=== PATIENT | female | born 1940 | race Caucasian/White ===

== ENCOUNTER → 2017-07-09 15:09 | Outpatient (CLI) | payer MEDICARE, SELFPAY ==
[2017-07-09 17:52] LABS: Hematocrit 39.6 % (37-47); Hemoglobin 13.1 g/dl (12.0-15.0); Mean Corp Hgb Conc 33.1 g/gl (32-36); Mean Corpuscular Hgb 28.5 pg (27.0-32.0); Mean Corpuscular Volume 86.1 fL (81-99); Mean Platelet Vol. 10.5 fl (6.2-12.0); Platelet Count 368 K/mm3 (150-450); RBC Distribution Width CV 13.5 % (11.6-14.6); RBC Distribution Width SD 42.2 fl (35.1-43.9); White Blood Count 12.4 K/mm3 (4.4-11.0)
[2017-07-09 17:53] LABS: Scan Indicated on CBC? Y/N NO
[2017-07-09 18:12] LABS: Prothrombin Time (Protime)PT. 12.7 SECONDS (11.7-14.9)
[2017-07-09 18:13] LABS: Partial Thromboplast Time 28.5 Seconds (24.1-36.2)
[2017-07-09 18:19] LABS: AST(SGOT) 21 U/L (15-37); Alanine Aminotransfer ALT/SGPT 39 U/L (12-78); Albumin, Serum 4.4 g/dL (3.4-5.0); Alkaline Phosphatase 93 U/L (45-117); Globulin 3.5 g/dL (2.2-4.2); Protein, Total 7.9 g/dL (6.4-8.2)
== END ==
PROVIDERS: Family Provider Internal Medicine; PCP Internal Medicine; Visit Provider Internal Medicine Gastroenterology
DX: K76.0 Fatty (change of) liver, not elsewhere classified (principal)
CPT/HCPCS: 36415; 80076; 85027; 85610; 85730; J7030

== ENCOUNTER → 2017-07-14 07:50 | Outpatient (CLI) | payer MEDICARE, SELFPAY ==
--- NOTE | 2017-07-14 07:53 | US_ITS ---
STUDY: ABDOMINAL ULTRASOUND - RIGHT UPPER QUADRANT REASON FOR VISIT: Female, 76 years old. Cirrhosis and fatty infiltration of the liver. Elevated alpha protein. TECHNIQUE: Ultrasound evaluation of the right upper quadrant was performed with real-time and static tyler-scale imaging. TECHNICAL QUALITY: Adequate. COMPARISON: Comparison is made with prior examination dated July 03, 2016. FINDINGS: Liver: The liver measures 15.8 cm. There is increased echogenicity consistent with fatty infiltration. The bile ducts are within normal limits. There is hepatic color flow. The direction of portal flow is hepatopetal. There is no demonstrated mass lesion. Gallbladder: The patient is status post cholecystectomy. Common Bile Duct (C.B.D.): The common bile duct measures 4.2 mm. Pancreas: Normal size of the head, body and tail of the pancreas. There is increased echogenicity of the pancreas. There is no demonstrated pancreatic mass or cyst. Right Kidney: Normal size of the right kidney. The right kidney measures 10.5 cm x 4.5 cm x 5.8 cm. Normal renal cortex. The right cortex measures 2.1 cm. There is no demonstrated renal mass or cyst. There is no right hydronephrosis. US/Liver IMPRESSION: Stable fatty infiltration of the liver. Status post cholecystectomy. Electronically Signed: Ok Wolfe MD at 12:59 EST Tel [phone], Service support ,
== END ==
PROVIDERS: Family Provider Internal Medicine; PCP Internal Medicine; Visit Provider Internal Medicine Gastroenterology
DX: K74.60 Unspecified cirrhosis of liver (principal)
CPT/HCPCS: 76705

== ENCOUNTER → 2017-12-07 15:27 | Outpatient (CLI) | payer MEDICARE, SELFPAY ==
--- NOTE | 2017-12-07 15:30 | BI_ITS ---
MAMMOGRAPHY - UNILATERAL SCREENING: LEFT BREAST REASON FOR EXAM: Female, 77 years old. Routine annual screening examination (unilateral). PERTINENT HISTORY: Personal history of breast cancer. Prior right mastectomy with radiation therapy. TECHNIQUE: Digital unilateral breast meera (3D mammographic acquisition) in the CC and MLO projections. 2-D mediolateral oblique (MLO) and craniocaudad (CC) views of both breasts were obtained. CAD: Full Field Digital Mammography with Computer Added Detection was performed. COMPARISON: Comparison is made with prior examination dated October 05, 2016 and October 01, 2014. FINDINGS: Breast Composition: There are scattered areas of fibroglandular density. There are no dominant masses or suspicious calcifications. No other significant abnormalities are identified. There has been no significant change since the prior study. BI/UNILAT LT SCRN W/CAD IMPRESSION: Stable unilateral screening mammogram. Yearly follow-up mammogram recommended. (A) ASSESSMENT CATEGORY: BIRADS Category 1: Negative. A letter regarding these results will be sent to the patient by the facility within 30 days. Approximately 10% of breast cancers are not detected by mammography. A normal mammogram should not delay biopsy of a clinically suspicious abnormality. [id number] Electronically Signed: Ok Wolfe MD at 8:43 EDT Tel [phone], Service support ,
--- NOTE | 2017-12-07 15:33 | BD_ITS ---
STUDY: DUAL ENERGY X-RAY ABSORPTIOMETRY / DXA REASON FOR EXAM: Female, 77 years old. The patient is postmenopausal. Loss of height. TECHNIQUE: Bone Mineral Density (BMD) measurements of lumbar spine and bilateral hips were obtained. COMPARISON: Comparison is made with prior study dated July 18, 2014. FINDINGS: Lumbar Spine (L1-L4): g/cm2 (1.160) / T-score (-0.2) / Z-score (1.6) Findings are suggestive of normal bone density with a low fracture risk. Left Femur Total: g/cm2 (1.018) / T-score (0.1) / Z-score (1.9) Left Femoral Neck: g/cm2 (0.88) / T-score (-1.1) / Z-score (0.9) Right Femur Total: g/cm2 (0.962) / T-score (-0.4) / Z-score (1.4) Right Femoral Neck: g/cm2 (0.875) / T-score (-1.2) / Z-score (0.8) The T-Scores on the most recent prior examination were: Lumbar Spine (L1-L4): There has been improvement of bone density since the previous examination. Left Femur Total: which represents an improvement of 0.8%. Right Femur Total: which represents an improvement of 1.8%. BD/Dexa Bone Density Study IMPRESSION: The patient is considered osteopenic as outlined below according to World Justin Organization (WHO) criteria with a moderate fracture risk. There has been improvement of bone density since the previous examination. Reference Information: The T-score is the number of standard deviations above or below the standard which is normal for young adults at their peak bone mineral density. The World Health Organization (WHO) interprets the T-scores as follows: Above -1 Normal bone density Between -1 and -2.5 Osteopenia Equal to / or below -2.5 Osteoporosis As a practical clinical guideline, osteopenia may be graded as follows: Mild -1 through -1.5 Moderate -1.6 through -2.0 Severe -2.1 through -2.4 The Z-score is the number of standard deviations above or below age-matched controls. A Z-score of less than -1.5 would be considered abnormal. References: 1. NIH Osteoporosis and Related Bone Diseases http://www.osteo.org 2. International Society for Clinical Densitometry http://www.iscd.org 3. National Osteoporosis Foundation http://www.nof.org Electronically Signed: Ok Wolfe MD at 11:27 EDT Tel [phone], Service support ,
== END ==
PROVIDERS: Family Provider Internal Medicine; PCP Internal Medicine; Visit Provider Obstetrics & Gynecology
DX: Z78.0 Asymptomatic menopausal state (principal); Z91.89 Other specified personal risk factors, not elsewhere classified; Z12.31 Encounter for screening mammogram for malignant neoplasm of breast
CPT/HCPCS: 77061; 77067; 77080; G0279

== ENCOUNTER → 2018-08-17 14:14 | Outpatient (CLI) | payer MEDICARE, SELFPAY ==
[2017-10-18 10:49] VITALS: BMI 25.9
[2018-08-19 12:42] LABS: AFP, Tumor Marker 45.8 ng/mL (0.0-8.3)
== END ==
PROVIDERS: Family Provider Internal Medicine; PCP Internal Medicine; Referring Provider Internal Medicine Gastroenterology; Visit Provider Internal Medicine Gastroenterology
DX: K76.0 Fatty (change of) liver, not elsewhere classified (principal); R77.2 Abnormality of alphafetoprotein
CPT/HCPCS: 36415; 82105

== ENCOUNTER → 2018-12-08 | Outpatient (CLI) | payer MEDICARE, SELFPAY ==
[2018-12-05 14:09] VITALS: BMI 25.9
--- NOTE | 2018-12-08 11:02 | BI_ITS ---
MAMMOGRAPHY - UNILATERAL SCREENING: LEFT BREAST WITH TOMOSYNTHESIS REASON FOR EXAM: Female, 78 years old. Routine annual screening examination (unilateral). PERTINENT HISTORY: History of right mastectomy at age 67 status post chemotherapy. TECHNIQUE: TECHNIQUE: Digital examination. Mediolateral oblique (MLO) and craniocaudad (CC) views of both breasts were obtained. 3-D, symphysis images were also obtained. CAD: CAD was performed on this study. COMPARISON: December 07, 2017, October 05, 2016 FINDINGS: Breast Composition: The breasts are almost entirely fatty. There are stable benign calcifications. There are no dominant masses or suspicious calcifications. No other significant abnormalities are identified. BI/SCREEN MAMM (CAD) W/JEANIE UNI L IMPRESSION: Stable bilateral screening mammogram. ASSESSMENT CATEGORY: BIRADS Category 2: Benign. A letter regarding these results will be sent to the patient by the facility within 30 days. FOLLOW UP RECOMMENDATION: Yearly follow up mammogram recommended. (A) Approximately 10% of breast cancers are not detected by mammography. A normal mammogram should not delay biopsy of a clinically suspicious abnormality. [id number] Electronically Signed: Iraj Navarro MD at 16:56 EDT , Service support ,
== END | disposition home or self-care (01) ==
LOC: OPBI 10:56
PROVIDERS: Family Provider Internal Medicine; PCP Internal Medicine; Referring Provider Obstetrics & Gynecology; Visit Provider Obstetrics & Gynecology
DX: Z12.31 Encounter for screening mammogram for malignant neoplasm of breast (principal)
CPT/HCPCS: 77061; 77067; G0279

== ENCOUNTER → 2019-04-03 | Outpatient (CLI) | payer MEDICARE, SELFPAY ==
[2018-12-05 14:09] VITALS: BMI 25.9
--- NOTE | 2019-04-03 16:51 | RAD_ITS ---
STUDY: X-RAY CHEST REASON FOR EXAM: Female, 78 years old. Cough x4-5 days, history of right mastectomy TECHNIQUE: PA and lateral views of the chest. COMPARISON: None. FINDINGS: The lungs are clear and expanded. There is no demonstrated pleural abnormality. Normal size heart. Normal mediastinum and camron. Normal visualized pulmonary arteries. There are calcified plaques of the aortic arch. There is mild diffuse endplate spondylosis of the thoracic spine. Normal visualized ribs, clavicles, and shoulders. Status post right mastectomy changes are noted. RAD/Chest PA and Lateral IMPRESSION: 1. Status post right mastectomy. 2. Calcified plaques of the aortic arch. 3. Mild diffuse endplate spondylosis of the thoracic spine. 4. No acute cardiopulmonary disease process is seen. Electronically Signed: Antonio Hassan MD at 23:57 EDT , Service support ,
== END | disposition home or self-care (01) ==
LOC: MTLAB 16:38
PROVIDERS: Family Provider Internal Medicine; PCP Internal Medicine; Referring Provider Internal Medicine; Visit Provider Internal Medicine
DX: R05 Cough (principal); R77.2 Abnormality of alphafetoprotein
CPT/HCPCS: 36415; 71046; 82105

== ENCOUNTER → 2019-12-12 07:10 | Outpatient (CLI) | payer MEDICARE, SELFPAY ==
[2018-12-05 14:09] VITALS: BMI 25.9
--- NOTE | 2019-12-12 07:10 | BI_ITS ---
MAMMOGRAPHY - UNILATERAL SCREENING: LEFT BREAST REASON FOR EXAM: Female, 79 years old. Routine annual screening examination (unilateral). PERTINENT HISTORY: Personal history of breast cancer. Prior right mastectomy. TECHNIQUE: Digital unilateral breast jeanie (3D mammographic acquisition) in the CC and MLO projections. 2-D mediolateral oblique (MLO) and craniocaudad (CC) views of both breasts were obtained. CAD: Full Field Digital Mammography with Computer Added Detection was performed. COMPARISON: Comparison is made with prior examination dated December 08, 2018 and December 07, 2017. FINDINGS: Breast Composition: There are scattered areas of fibroglandular density. There are no dominant masses or suspicious calcifications. No other significant abnormalities are identified. There has been no significant change since the prior study. BI/SCREEN MAMM (CAD) W/JEANIE UNI L IMPRESSION: Stable unilateral screening mammogram. Yearly follow-up mammogram recommended. (A) ASSESSMENT CATEGORY: BIRADS Category 1: Negative. A letter regarding these results will be sent to the patient by the facility within 30 days. Approximately 10% of breast cancers are not detected by mammography. A normal mammogram should not delay biopsy of a clinically suspicious abnormality. [id number] Electronically Signed: kO Wolfe, at 9:14 EDT , Service support ,
== END ==
PROVIDERS: PCP Internal Medicine; Referring Provider Obstetrics & Gynecology; Visit Provider Obstetrics & Gynecology
DX: Z12.31 Encounter for screening mammogram for malignant neoplasm of breast (principal)
CPT/HCPCS: 77063; 77067

== ENCOUNTER → 2020-03-14 13:14 | Outpatient (CLI) | payer MEDICARE, SELFPAY ==
[2018-12-05 14:09] VITALS: BMI 25.9
[2020-03-14 13:45] LABS: CREATININE FINGERSTICK 0.9 mg/dL (0.55-1.02); EGFR FINGERSTICK > 60.0000 mL/min (>60)
--- NOTE | 2020-03-14 13:55 | CT_ITS ---
STUDY: CT ABDOMEN WITH CONTRAST REASON FOR EXAM: Female, 79 years old. INCREASE LIVER ENZYMES. HX OF RT BREAST CA WITH A RT MASTECTOMY RADIATION DOSAGE (If Supplied By Facility): CTDIvol = ( 20.76 ) mGy, DLP = ( 260.51 ) mGycm TECHNIQUE: Transaxial images were obtained post I.V. administration of IV 100mL Isovue-300, and without oral contrast. Sagittal and coronal images were reconstructed. Individualized dose optimization techniques were used for this CT. COMPARISON: Comparison is made with prior examination 07/20/2016. FINDINGS: The visualized lung bases are unremarkable. The visualized portions of the heart are within normal limits. There is decreased attenuation of the liver consistent with steatosis. There are surgical clips in the gallbladder fossa consistent with a prior cholecystectomy. Normal spleen. Normal pancreas. Normal bilateral adrenal glands. Normal right kidney. Stable parapelvic cysts in the left kidney. Normal visualized stomach. Normal small intestine. Normal colon. The appendix is visualized and appears normal. There is diffuse atherosclerotic calcification of the abdominal aorta, without a demonstrated aneurysm. Normal inferior vena cava. Normal retroperitoneum. Normal abdominal wall. There are mild degenerative changes of the visualized lumbar spine. CT/Abdomen WITH IV Contrast IMPRESSION: Fatty infiltration of the liver. Parapelvic cysts in the left kidney. Electronically Signed: Ok Wolfe, at 15:00 EDT , Service support ,
== END ==
PROVIDERS: PCP Internal Medicine; Referring Provider Internal Medicine Gastroenterology; Visit Provider Internal Medicine Gastroenterology
DX: K76.0 Fatty (change of) liver, not elsewhere classified (principal); K74.60 Unspecified cirrhosis of liver
CPT/HCPCS: 74160; Q9967; A4216

== ENCOUNTER → 2020-10-08 09:22 | Outpatient (CLI) | payer MEDICARE, SELFPAY ==
[2020-03-28 15:04] VITALS: BMI 24.5
--- NOTE | 2020-10-08 09:26 | US_ITS ---
STUDY: ABDOMINAL ULTRASOUND - RIGHT UPPER QUADRANT REASON FOR VISIT: Female, 79 years old CIRRHOSIS elevated lft''s TECHNIQUE: Ultrasound evaluation of the right upper quadrant was performed with real-time and static tyler-scale imaging. TECHNICAL QUALITY: Adequate. COMPARISON: Comparison is made with prior examination dated 07/14/2017. FINDINGS: Liver: The liver measures 15.5 cm. There is increased echogenicity consistent with fatty infiltration. The bile ducts are within normal limits. There is hepatic color flow. The direction of portal flow is hepatopetal. There is no demonstrated mass lesion. Gallbladder: The patient is status post cholecystectomy. Common Bile Duct (C.B.D.): The common bile duct measures 4.2 mm. Pancreas: Normal size of the head, body and tail of the pancreas. There is normal echogenicity of the pancreas. There is no demonstrated pancreatic mass or cyst. Right Kidney: Normal size of the right kidney. The right kidney measures 10.2 cm x 5.3 cm x 3.7 cm. Normal renal cortex. The right cortex measures 1.3 cm. There is no demonstrated renal mass or cyst. There is no right hydronephrosis. US/Liver IMPRESSION: Stable fatty infiltration of the liver. Status post cholecystectomy. Electronically Signed: Ok Wolfe MD at 13:08 EDT , Service support ,
== END ==
PROVIDERS: PCP Internal Medicine; Referring Provider Internal Medicine Gastroenterology; Visit Provider Internal Medicine Gastroenterology
DX: K74.60 Unspecified cirrhosis of liver (principal); R79.89 Other specified abnormal findings of blood chemistry
CPT/HCPCS: 76705

== ENCOUNTER → 2020-10-21 12:57 | Outpatient (CLI) | payer MEDICARE, SELFPAY ==
[2020-03-28 15:04] VITALS: BMI 24.5
--- NOTE | 2020-10-21 13:03 | CDU_ITS ---
Reason For Study: Carotid Stenosis Rt. Velocities/BP Lt. Velocities/BP Prox CCA 110/19 cm/sec. Prox CCA 87/22 cm/sec. Mid CCA 77/19 cm/sec. Mid CCA 72/20 cm/sec. Dist CCA 71/19 cm/sec. Dist CCA 71/21 cm/sec. Prox ICA 68/18 cm/sec. Prox ICA 92/20 cm/sec. Mid ICA 78/20 cm/sec. Mid ICA 80/22 cm/sec. Dist ICA 94/27 cm/sec. Dist ICA 89/25 cm/sec. Rt. ICA/CCA = 1.2. Lt. ICA/CCA = 1.3. Prox ECA 81/16 cm/sec. Prox ECA 98/13 cm/sec. Rt. Vert. 75/13 cm/sec. Lt. Vert. 42/15 cm/sec. Right Extracranial There is heterogeneous, irregular atherosclerotic plaque noted in the right common carotid artery. There is heterogeneous, irregular atherosclerotic plaque noted in the right internal carotid artery. There is no significant atherosclerotic plaque noted in the right external carotid artery. Antegrade flow is noted in the right vertebral artery. Left Extracranial There is heterogeneous, irregular atherosclerotic plaque noted in the left common carotid artery. There is heterogeneous, irregular atherosclerotic plaque noted in the left internal carotid artery. The left internal carotid artery is very tortuous. There is intimal thickening but no significant atherosclerotic plaque noted in the left external carotid artery. Antegrade flow is noted in the left vertebral artery. Procedure Carotid Duplex [id number]. This is a Carotid Duplex examination using B-mode, color flow and specral Doppler. Exam performed in department. VL/Carotid Duplex Ultrasound Interpretation Summary Irregular calcific plaque at the proximal right internal carotid artery with le ss than 50% stenosis Less than 50% stenosis right external carotid artery Irregular calcific plaque in the proximal left internal carotid artery with les s than 50% stenosis Less than 50% stenosis left external carotid artery Patent and antegrade vertebral arteries bilaterally Minimally elevated left internal carotid artery velocity identified previously September 04, 2015 is not identified on this examination Ordering Physician: Michelle Arango Referring Physician: Michelle Arango Performed By: Precious Singh, DANTE, RVT
--- NOTE | 2020-10-21 13:32 | CT_ITS ---
STUDY: CT BRAIN WITHOUT CONTRAST REASON FOR EXAM: Female, 79 years old. ALTERED MENTAL STATUS -- R/O CVA, SMALL VESSEL DISEASE RADIATION DOSAGE (If Supplied By Facility): CTDIvol = ( 44.99 ) mGy, DLP = ( 745.49 ) mGycm TECHNIQUE: Transaxial CT imaging of the brain was performed without administration of intravenous contrast material. Individualized dose optimization techniques were used for this CT. COMPARISON: No relevant priors. FINDINGS: Normal soft tissue structures. Normal calvarium. Normal size ventricles and extra-axial spaces for the patient''s age. Normal white matter tracts of the cerebral hemispheres. Normal basal ganglia and thalami. Normal brainstem. Normal cerebellum. There is no intracranial hemorrhage. There are no findings of an acute ischemic infarction. Normal visualized paranasal sinuses. CT/Brain/Head without Contrast IMPRESSION: Normal unenhanced CT scan of the brain. Electronically Signed: Ok Wolfe MD at 15:18 EDT , Service support ,
== END ==
PROVIDERS: PCP Internal Medicine; Referring Provider Internal Medicine; Visit Provider Internal Medicine
DX: I65.23 Occlusion and stenosis of bilateral carotid arteries (principal); R41.82 Altered mental status, unspecified
CPT/HCPCS: 70450; 93880

== ENCOUNTER → 2020-12-12 11:50 | Outpatient (CLI) | payer MEDICARE, SELFPAY ==
[2020-03-28 15:04] VITALS: BMI 24.5
--- NOTE | 2020-12-12 11:52 | BI_ITS ---
MAMMOGRAPHY - UNILATERAL SCREENING: LEFT BREAST REASON FOR EXAM: Female, 80 years old. Routine annual screening examination (unilateral). PERTINENT HISTORY: Personal history of breast cancer. Prior right mastectomy. TECHNIQUE: Digital unilateral breast jeanie (3D mammographic acquisition) in the CC and MLO projections. 2-D mediolateral oblique (MLO) and craniocaudad (CC) views of both breasts were obtained. CAD: Full Field Digital Mammography with Computer Added Detection was performed. COMPARISON: Comparison is made with prior examination dated 12/12/2019 and 12/08/2018. FINDINGS: Breast Composition: There are scattered areas of fibroglandular density. There are no dominant masses or suspicious calcifications. No other significant abnormalities are identified. There has been no significant change since the prior study. BI/SCREEN MAMM (CAD) W/JEANIE UNI L IMPRESSION: Stable unilateral screening mammogram. Yearly follow-up mammogram recommended. (A) ASSESSMENT CATEGORY: BIRADS Category 1: Negative. A letter regarding these results will be sent to the patient by the facility within 30 days. Approximately 10% of breast cancers are not detected by mammography. A normal mammogram should not delay biopsy of a clinically suspicious abnormality. [id number] Electronically Signed: Ok Wolfe MD at 12:30 EDT , Service support ,
== END ==
PROVIDERS: PCP Internal Medicine; Referring Provider Obstetrics & Gynecology; Visit Provider Obstetrics & Gynecology
DX: Z12.31 Encounter for screening mammogram for malignant neoplasm of breast (principal)
CPT/HCPCS: 77063; 77067

== ENCOUNTER 2021-04-18 14:30 | Outpatient (RCR) | payer MEDICARE, SELFPAY ==
--- NOTE | 2021-03-19 15:18 | HP.PTEVAL ---
Patient's Visit Information MONICA VO is a 80 year old F referred to Physical Therapy by Dr. Michelle Arango DO with a diagnosis of BACK PAIN. Date of Evaluation: 03/19/21 Physical Therapist: Baldo Steiner, PT, Cert MDT, OCS - Visit Plan Frequency: 2x /Week Duration: 4 Weeks Plan: PT INTERVENTIONS POSTURAL EX'S,FLEXABILITY,STRENGTHENING THORACIC ,MODALTIES AND SCAPULAR STRENGTHENING,MANUAL THERAPY - Subjective This 80 y/o female presents to physical therapy with upper back pain . Patient developed back pain from falling January ,patient fell backwards on upper back. Patient had immediate pain. Patient seen DR Arango . Recommended PT . Patient location of pain between shoulder blades upper thoracic spine. Patient has occasional pain right arm. Occasional paresthesia/tingling . Aggravating factors night ,lifting using arms over head. Alleviating factors sitting, rest ,heat. Coughing/sneezing +. Bowel/bladder-. Denies paresthesia/tingling-. Patient pain affects sleeping. 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 No prior PT . Patient has difficulty reaching ,behind back ,putting on coat. Goals to return to normal function. SOCIAL: . VOCATION: [employer] - Pain Bilateral Scapula Pain Intensity (Out of 10): 6 Pain Intensity Range: 10 - Objective POSTURE: mild thoracic kyphosis. PALAPTION: tender intrascapular muscles. NEURO: c/o occasional paraphasia right arm, reflexes C5-6-7 2/3. BUE AROM: WFL. MMT: 4/5 except shoulders 4-/5 with pain UT. CERCICAL ROM: flexion min loss, extension mod loss, rotation ,lateral flexion ,mod loss. THORACIC ROM: flexion mod pulling, extension mod ,rotation mod loss - Special Tests C/S Radiculapathy - Left Upper limb tension test: Negative C/S Radiculapathy - Right Upper limb tension test: Negative C/S Radiculapathy - Left Spurlings: Negative C/S Radiculapathy - Right Spurlings: Negative C/S Radiculapathy - Left Cervical distraction: Negative C/S Radiculapathy - Right Cervical distraction: Negative C/S Radiculapathy - Left Relief test: Negative C/S Radiculapathy - Right Relief test: Negative Sharp Jennifer: Negative Vertebral Artery Test: Negative Alar Ligament Test: Negative Cervical Sitting: Protrusion - Mechanical Response: No effect Cervical Sitting: Protrusion - Symptoms During Testing: No effect Cervical Sitting: Protrusion - Symptoms After Testing: No effect Cervical Sitting: Retraction - Mechanical Response: No effect Cervical Sitting: Retraction - Symptoms During Testing: No effect Cervical Sitting: Retraction - Symptoms After Testing: No effect Cervical Sitting: Retraction-Extension - Mechanical Response: No effect Cerv Sitting: Retraction-Extension - Symptoms During Testing: No effect Cerv Sitting: Retraction-Extension - Symptoms After Testing: No effect Cervical Sitting: Sidebend Right - Mechanical Response: No effect Cervical Sitting: Sidebend Right - Symptoms During Testing: No effect Cervical Sitting: Sidebend Right - Symptoms After Testing: No effect Cervical Sitting: Sidebend Left - Mechanical Response: No effect Cervical Sitting: Sidebend Left - Symptoms During Testing: No effect Cervical Sitting: Sidebend Left - Symptoms After Testing: No effect Cervical Sitting: Rotation Right - Mechanical Response: No effect Cervical Sitting: Rotation Right - Symptoms During Testing: No effect Cervical Sitting: Rotation Right - Symptoms After Testing: No effect Cervical Sitting: Rotation Left - Symptoms During Testing: No effect Cervical Sitting: Rotation Left - Symptoms After Testing: No effect Cervical Sitting: Flexion - Mechanical Response: No effect Cervical Sitting: Flexion - Symptoms During Testing: No effect Cervical Sitting: Flexion - Symptoms After Testing: No effect Thoracic Sitting: Flexion - Mechanical Response: No effect Thoracic Sitting: Flexion - Symptoms During Testing: Increases Thoracic Sitting: Flexion - Symptoms After Testing: No effect Thoracic Sitting: Extension - Mechanical Response: No effect Thoracic Sitting: Extension - Symptoms During Testing: No effect Thoracic Sitting: Extension - Symptoms After Testing: No effect Thoracic Sitting: Right rotation - Mechanical Response: No effect Thoracic Sitting: Right Rotation - Symptoms During Testing: No effect Thoracic Sitting: Right Rotation - Symptoms After Testing: No effect Thoracic Sitting: Left rotation - Mechanical Response: No effect Thoracic Sitting: Left Rotation - Symptoms During Testing: No effect Thoracic Sitting: Left Rotation - Symptoms After Testing: No effect - Balance/Special Test Scores Oswestry Low Back Score: 21 - Goals Goal 1:: I with HEP to manage back pain Goal Time Frame: 4-6 Weeks Goal 2:: Patient demonstrate 50% improvement with decrease upper thoracic back pain to improve function Goal Time Frame: 4-6 Weeks Goal 3:: Patient to improve thoracic ROM for function of recovery to improve ADLS Goal Time Frame: 4-6 Weeks Goal 4:: Patient improve back owestry score by 5 points to improve function Goal Time Frame: 4-6 Weeks Goal 5:: Patient to increase shoulder strength to improve function with ADLS' - Rehabilitation Potential Physical Therapy Diagnosis: This patient fell on upper back thus developed pain and weakness UE shoulders with pain with position and motion testing which impairs ADL's and function . Rehabilitation Potential: Good - Anticipated Interventions Patient/Client Instruction: Educate patient on: Condition, Plan of Care For the Purpose of:: To decrease pain, To increase ROM, To improve muscle performance and motor function, To improve ability to perform ADL's, To increase tolerance to activity/condition/position, To improve performance and independence with ADL's, To improve ability of physical actions for home/community/work/leisure, To improve health of tissue, To decrease soft tissue restriction, To increase flexibility/ROM, To reduce risk of recurrence, To prevent re-injury Therapeutic Exercise to Include: Strength training, Body mechanics, Postural training, Flexibilty training, Dynamic Lumbar Stabilization, Scapular Strength/Stabilization For the Purpose of:: To decrease pain, To increase ROM, To improve muscle performance and motor function, To improve ability to perform ADL's, To increase tolerance to activity/condition/position, To improve performance and independence with ADL's, To improve ability of physical actions for home/community/work/leisure, To improve health of tissue, To decrease soft tissue restriction, To increase flexibility/ROM, To improve health and function, To prevent re-injury TENS: Yes IF ES: Yes Cryotherapy (ice pack, ice massage): Yes Thermo therapy (hot pack): Yes For the Purpose of:: To decrease pain, To improve nutrient delivery to tissue, To increase oxygenation perfusion, To improve health of tissue, To decrease soft tissue restriction Thank you for the opportunity to evaluate your patient. For Medicare and Medicare HMO plans, please review the plan of care and approve it. It will need to be FAXED BACK to us at [phone] for Medicare purposes. For Medicare only, by signing this I certify the plan of care. Please let me know if there are questions or concerns regarding this plan of care. Physician Signature: Date:
--- NOTE | 2021-04-18 14:56 | HP.PTDCSUM_ITS ---
It has been my pleasure to treat MONICA VO referred by Dr. Michelle Arango DO, with the diagnosis of BACK PAIN for a total of 9 visit(s). Discharge Date: 04/18/21 Please see the following information for a summary of their discharge status. Subjective: Patient reports doing much better ..sleeping throughout night Bilateral Scapula Pain Intensity (Out of 10): 1 % Improvement: 70 Objective/Function: POSTURE: WFL. PALPATION: TENDER UT /LEVATOR. CERVICAL ROM: FLEXION MIN LOSS,LATERAL FLEXION/ROTATION MOD LOSS,. MMT: BUE 4/5 SHOULDERS 4- /5 Goal 1:: I with HEP to manage back pain Goal Progress: Goal Met Goal 2:: Patient demonstrate 50% improvement with decrease upper thoracic back pain to improve function Goal Progress: Goal Met Goal 3:: Patient to improve thoracic ROM for function of recovery to improve ADLS Goal Progress: Goal Met Goal 4:: Patient improve back owestry score by 5 points to improve function Goal Progress: Goal Met Goal 5:: Patient to increase shoulder strength to improve function with ADLS' Goal Progress: Goal Met Plan: D/C If there are questions or concerns regarding this patient's physical therapy, please feel free to call me at [phone]. Thank you for the referral of this patient. Sincerely, Baldo Steiner PT, Cert MDT, OCS Balance/Gait/Functional tests - Balance/Special Test Scores Oswestry Low Back Score: 21 Oswestry Neck Score: 2
== END 2021-04-18 19:00 | disposition home or self-care (01) ==
LOC: PT 14:30
PROVIDERS: PCP Internal Medicine; Visit Provider Internal Medicine
DX: M54.9 Dorsalgia, unspecified (principal)
CPT/HCPCS: 97014; 97110; 97162; 97530; G0283

== ENCOUNTER → 2021-12-22 | Outpatient (CLI) | payer MEDICARE, SELFPAY ==
--- NOTE | 2021-12-22 13:08 | BI_ITS ---
MAMMOGRAPHY - UNILATERAL SCREENING: LEFT BREAST REASON FOR EXAM: Female, 81 years old. Routine annual screening examination (unilateral). PERTINENT HISTORY: Personal history of breast cancer. Prior right mastectomy and chemotherapy. TECHNIQUE: Digital unilateral breast jeanie (3D mammographic acquisition) in the CC and MLO projections. 2-D mediolateral oblique (MLO) and craniocaudad (CC) views of both breasts were obtained. CAD: Full Field Digital Mammography with Computer Added Detection was performed. COMPARISON: Comparison is made with prior study dated 12/12/2020 and 12/12/2019. FINDINGS: Breast Composition: There are scattered areas of fibroglandular density. There are no dominant masses or suspicious calcifications. No other significant abnormalities are identified. There has been no significant change since the prior study. BI/SCREEN MAMM (CAD) W/JEANIE UNI L IMPRESSION: Stable unilateral screening mammogram. Yearly follow-up mammogram recommended. (A) ASSESSMENT CATEGORY: BIRADS Category 1: Negative. A letter regarding these results will be sent to the patient by the facility within 30 days. Approximately 10% of breast cancers are not detected by mammography. A normal mammogram should not delay biopsy of a clinically suspicious abnormality. [id number] Electronically Signed: Ok Wolfe MD at 13:49 EDT ,
== END | disposition home or self-care (01) ==
LOC: OPBI 13:08
PROVIDERS: PCP Internal Medicine; Visit Provider Obstetrics & Gynecology
DX: Z12.31 Encounter for screening mammogram for malignant neoplasm of breast (principal)
CPT/HCPCS: 77063; 77067

== ENCOUNTER → 2022-06-24 | Outpatient (CLI) | payer MEDICARE, SELFPAY ==
--- NOTE | 2022-06-24 14:42 | RAD_ITS ---
INDICATION: ACUTE PAIN EXAMINATION/TECHNIQUE: X-RAY - RIGHT XR Knee Complete 4 Views or More 4 VIEWS COMPARISON: None. FINDINGS: SOFT TISSUES: There are two calcific densities projecting over the expected region of the lateral collateral ligament. BONES/JOINTS: No acute fracture or subluxation.. Normal alignment. There are moderate degenerative changes of the medial compartment characterized by joint space narrowing, subchondral sclerosis and marginal osteophytes. There are mild degenerative changes of the patellofemoral articulation. There is a small joint effusion. No sclerotic or destructive changes observed. RAD/Knee 4 or More Views IMPRESSION: Degenerative changes. Small joint effusion. Calcifications within the expected region of the lateral collateral ligament. Electronically Signed: Wen Brink MD at 8:13 EST ,
== END | disposition home or self-care (01) ==
LOC: MTRAD 14:41
PROVIDERS: PCP Internal Medicine; Referring Provider Internal Medicine; Visit Provider Internal Medicine
DX: M25.561 Pain in right knee (principal)
CPT/HCPCS: 73564

== ENCOUNTER → 2022-07-07 | Outpatient (CLI) | payer MEDICARE, SELFPAY ==
--- NOTE | 2022-07-07 13:32 | BD_ITS ---
STUDY: DUAL ENERGY X-RAY ABSORPTIOMETRY / DXA REASON FOR EXAM: Female, 81 years old. [id number] TECHNIQUE: Bone Mineral Density (BMD) measurements of lumbar spine and bilateral hips were obtained. COMPARISON: Comparison is made with prior study dated 12/07/2017. FINDINGS: Lumbar Spine (L1-L4): g/cm2 (0.971) / T-score (-0.7) / Z-score (2.0) Findings are suggestive of normal bone density with a low fracture risk. Left Femur Total: g/cm2 (0.934) / T-score (-0.1) / Z-score (2.0) Left Femoral Neck: g/cm2 (0.686) / T-score (-1.5) / Z-score (0.9) Right Femur Total: g/cm2 (0.871) / T-score (-0.6) / Z-score (1.5) Right Femoral Neck: g/cm2 (0.745) / T-score (-0.9) / Z-score (1.4) The T-Scores on the most recent prior examination were: Lumbar Spine (L1-L4): There has been worsening of bone density since the previous examination. Left Femur Total: which represents a worsening of 1.8%. Right Femur Total: which represents a worsening of 2.8%. BD/Dexa Bone Density Study IMPRESSION: The patient is considered osteopenic as outlined below according to World Justin Organization (WHO) criteria with a low fracture risk. There has been worsening of bone density since the previous examination. Reference Information: The T-score is the number of standard deviations above or below the standard which is normal for young adults at their peak bone mineral density. The World Health Organization (WHO) interprets the T-scores as follows: Above -1 Normal bone density Between -1 and -2.5 Osteopenia Equal to / or below -2.5 Osteoporosis As a practical clinical guideline, osteopenia may be graded as follows: Mild -1 through -1.5 Moderate -1.6 through -2.0 Severe -2.1 through -2.4 The Z-score is the number of standard deviations above or below age-matched controls. A Z-score of less than -1.5 would be considered abnormal. References: 1. NIH Osteoporosis and Related Bone Diseases www osteo.org 2. International Society for Clinical Densitometry www iscd.org 3. National Osteoporosis Foundation www nof.org Electronically Signed: Ok Wolfe MD at 8:36 EST ,
== END | disposition home or self-care (01) ==
LOC: OPBD 13:17
PROVIDERS: PCP Internal Medicine; Visit Provider Internal Medicine
DX: Z13.820 Encounter for screening for osteoporosis (principal); Z78.0 Asymptomatic menopausal state
CPT/HCPCS: 77080

== ENCOUNTER → 2022-07-30 | Outpatient (CLI) | payer MEDICARE, SELFPAY ==
--- NOTE | 2022-07-30 12:38 | MRI_ITS ---
EXAM: MR ABDOMEN WITHOUT AND WITH INTRAVENOUS CONTRAST CLINICAL INDICATION: ELEVATED EFTS TECHNIQUE: Multiplanar and multisequence MR images of the abdomen without and with intravenous contrast. This report was created using [employer] report generation technology. CONTRAST: IV 14cc Clariscan COMPARISON: MR Abdomen dated 08/07/2016 FINDINGS: LOWER THORAX: Normal. No pleural effusion. LIVER: Prominent signal dropout within the liver parenchyma on the out of phase image indicative of steatosis similar to prior study. No abnormal contrast enhancement. GALLBLADDER AND BILE DUCTS: Susceptibility artifact at the jay hepatis related to cholecystectomy clips. No intra- or extrahepatic biliary ductal dilation. PANCREAS: Normal. No focal cystic or solid mass. SPLEEN: Normal. Normal size without focal cystic or solid mass. ADRENALS: Normal. No nodules. KIDNEYS AND URETERS: Normal. Normal renal size and position. No hydronephrosis. INTRAPERITONEAL SPACE: Normal. No ascites or other fluid collection. No free air. VASCULATURE: Normal. Abdominal aorta is non-dilated. LYMPH NODES: No enlarged lymph nodes. MRI/MRI Abd WITH and W/O Contrast IMPRESSION: Hepatic steatosis. Electronically Signed: Axel Bowman MD at 10:34 EST ,
[2022-07-30 13:16] LABS: CREATININE FINGERSTICK < 0.9 mg/dL (0.55-1.02); EGFR FINGERSTICK > 60.0000 mL/min (>60)
== END | disposition home or self-care (01) ==
PROVIDERS: PCP Internal Medicine; Referring Provider Internal Medicine Gastroenterology; Visit Provider Internal Medicine Gastroenterology
DX: K74.60 Unspecified cirrhosis of liver (principal); R97.8 Other abnormal tumor markers
CPT/HCPCS: 74183; A9575; A4216

== ENCOUNTER → 2022-11-19 | Outpatient (CLI) | payer MEDICARE, SELFPAY ==
--- NOTE | 2022-11-19 11:15 | MRI_ITS ---
STUDY: MRI BRAIN WITHOUT CONTRAST REASON FOR EXAM: Female, 82 years old. change in mental status, double vision. History of TIA, rule out TECHNIQUE: Standardized multiplanar fat and water weighted pulse sequences were obtained. COMPARISON: CT of the brain October 21, 2020. FINDINGS: Normal size of the ventricles and extra-axial spaces for the patient''s age. Mild periventricular white matter ischemic changes without mass effect or restricted diffusion. Normal bilateral basal ganglia. Normal thalami. There is no extra-axial fluid accumulation. Normal flow voids within the major intracranial circulation suggesting patency by spin echo criteria. Normal sella turcica, pituitary gland, infundibular stalk, optic chiasm and hypothalamus. Normal tectal plate and pineal gland. Normal midbrain, sen and medulla. Normal cerebellum. Normal basal cisterns. Normal bilateral temporal bones. Normal bilateral internal auditory canals. Postsurgical changes of the orbits. Normal visualized paranasal sinuses. Normal calvarium and skull base. Normal visualized soft tissue structures. Normal visualized upper cervical spine. MRI/Brain without Contrast IMPRESSION: Mild atrophy and periventricular white matter ischemic changes without evidence for acute infarct. Electronically Signed: Sabino Coello MD at 16:38 EDT ,
== END | disposition home or self-care (01) ==
LOC: MRI 11:08
PROVIDERS: PCP Internal Medicine; Referring Provider Internal Medicine; Visit Provider Internal Medicine
DX: R41.82 Altered mental status, unspecified (principal)
CPT/HCPCS: 70551

== ENCOUNTER → 2022-12-24 | Outpatient (CLI) | payer MEDICARE, SELFPAY ==
--- NOTE | 2022-12-24 14:22 | BI_ITS ---
MAMMOGRAPHY - UNILATERAL SCREENING: LEFT BREAST REASON FOR EXAM: Female, 82 years old. Routine annual screening examination (unilateral). PERTINENT HISTORY: Personal history of breast cancer. Prior right mastectomy and chemotherapy. TECHNIQUE: Digital unilateral breast jeanie (3D mammographic acquisition) in the CC and MLO projections. 2-D mediolateral oblique (MLO) and craniocaudad (CC) views of both breasts were obtained. CAD: Full Field Digital Mammography with Computer Added Detection was performed. COMPARISON: Comparison is made with prior study dated December 22, 2021 and December 12, 2020. FINDINGS: Breast Composition: There are scattered areas of fibroglandular density. There are no dominant masses or suspicious calcifications. No other significant abnormalities are identified. There has been no significant change since the prior study. BI/SCREEN MAMM (CAD) W/JEANIE UNI L IMPRESSION: Stable unilateral screening mammogram. Yearly follow-up mammogram recommended. (A) ASSESSMENT CATEGORY: BIRADS Category 1: Negative. A letter regarding these results will be sent to the patient by the facility within 30 days. Approximately 10% of breast cancers are not detected by mammography. A normal mammogram should not delay biopsy of a clinically suspicious abnormality. [id number] Electronically Signed: Ok Wolfe MD at 15:00 EDT ,
== END | disposition home or self-care (01) ==
LOC: OPBI 14:20
PROVIDERS: PCP Internal Medicine; Referring Provider Obstetrics & Gynecology; Visit Provider Obstetrics & Gynecology
DX: Z12.31 Encounter for screening mammogram for malignant neoplasm of breast (principal)
CPT/HCPCS: 77063; 77067

== ENCOUNTER 2023-04-19 14:00 | Outpatient (RCR) | payer MEDICARE, SELFPAY ==
--- NOTE | 2023-03-25 13:52 | HP.PTEVAL_ITS ---
Patient's Visit Information Visit Information Visit Information: MONICA VO is a 82 year old F referred to Physical Therapy by Dr. Michelle Arango DO with a diagnosis of R SIDED SCIATICA. Date of Evaluation: 03/25/23 Physical Therapist: Zelda Marie, PT, Cert MDT Visit Plan Frequency: 2-3x /Week Duration: 4-6 Weeks Plan: POSTURE CORRECTION/STRENGTHENING, INSTRUCTION IN APPROPRIATE BODY MECHANICS AND ACTIVITY MODIFICATIONS. DLS STARTING WITH A NEUTRAL SPINE PROGRESSING ROM TOLERATED. DIANA LE ROM, STRETCHING AND STRENGTHENING. HEP INSTRUCTION. 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 WORKING ABOUT 0-4 HOURS A DAY AND SOMETIMES MORE. Present symptoms: R LOW BACK PAIN. RIGHT THIGH PAIN. RIGHT LEG PAIN TO THE ANKLE. RIGHT LE SPASM. DIANA FOOT NUMBNESS R MUCH GREATER THAN LEFT THAT PATIENT RELATES TO NEUROPATHY. NO LLE SX'S. Present since: ABOUT 10 TO 14 DAYS AGO Pain Scale: WORST 8/10, LEAST 2/10 Currently: 6/10 Is it getting better, worse or staying the same: STAYING THE SAME Commenced as a result of: HOURS OF OUTDOOR CLEAN UP FOR FALL Symptoms at onset: STIFFNESS IN R THIGH. Worse: BENDING OVER, SITTING FOR A LONG TIME, HAVE TO HELP LEG IN AND OUT OF CAR, cautious getting in/out of car, RISING FROM SITTING. Better: MEDICATION: MUSCLE RELAXER, PREDNISONE (2 DAYS LEFT). RUBBING IT. Disturbed sleep: YES Previous history/Previous treatment: 2 PRIOR FLARE UPS (ABOUT 2-3 YEARS AGO) LIKE THIS AND ENEDED UP IN PAIN MGMT BOTH TIMES WITH JOHNNIE'S. TRIED PT BOTH TIMES TOO. A FEW MASSAGE THERAPY AND CHIROPRACTIC TREATMENTS WITH PAST EPISODES TOO. PATIENT FEELS IT WAS A COMBINATION OF TREATMENTS THAT HELPED HER GET OVER EPISODES IN THE PAST. Treatment this episode: M. RELAXER AND PREDNISONE Coughing/sneezing/straining: NOT SURE Gait: NOT USING ANY ASSISTIVE DEVICES BUT PATIENT REPORTS SHE IS WALKING SLOWER THAN NORMAL AND HAS TO BE CAREFUL WITH RIGHT SIDE - SOMETIMES I EVEN HOLD IT. NO FALLS. WALKING DOESN'T SEEM TO MAKE IT WORSE BUT HAS TO GO SLOW AND CAREFUL. SOMETIMES WALKING FEELS GOOD. Bowel or Bladder Dysfunction: NO Accidents: NO Unexplained weight loss: NO Imaging: NONE RECENT FOR BACK. LUMBAR MRI 2016: IMPRESSION: Mild degree of multilevel degenerative disease and bulges. Multilevel facet arthrosis more prominent at L5-S1. L5-S1 right foraminal stenosis with impingement of the L5 nerve root PMH/Recent major surgery: ABOUT 15 YEARS AGO - BREAST CANCER TREATED WITH MASECTOMY AND CHEMO, HTN, HIGH CHOLESTEROL. OTHER: PATIENT STATES POOL THERAPY HAS BEEN DISCUSSED WITH HER IN THE PAST AND SHE PREFERS TO [facility]. Objective Objective: Sitting/Standing Posture: POOR. FORWARD HEAD. ROUNDED SHOULDERS. REDUCED LUMBAR LORDOSIS BUT NO RELEVANT LATERAL SHIFT. INCREASED KYPHOSIS. Active Correction of posture: INCREASES R LBP Other Observations: SLOW ANTALGIC INDEP GAIT AND TRANSFERS. DIFFICULTY RISING FROM SITTING AND INITATING GAIT AFTER SITTING. NO LOB. GAIT X > 300 FEET WITH MILD LIMP ON R LE AND INTERMITTENT CIRCUMDUCTION OF R LE. INCREASED TRUNK FLEXION. Sensory deficit: DIANA LE LIGHT TOUCH SENSATION GROSSLY INTACT AND SYMMETRICAL. ROM deficit: DIANA HAS AND CALF TIGHTNESS R > L Motor deficit: R HIP 3+/5, KNEE 4/5, ANKLE 4/5. L HIP 4-/5, KNEE 5/5, ANKLE 5/5. Reflexes: UNALBE TO ELICIT R LE QUAD AND ACHILLES. L LE QUAD AND ACHILLES 1/2. Dural Signs: POSITIVE R LE Lumbar mvmt loss: flex - MOD. ext - KARI R SG - KARI L SG - MOD PATIENT C/O INCREASE R LOW BACK PAIN WITH LUMBAR ROM TESTING ALL PLANES EXCEPT L SG. Core strength: POOR Palpation: TENDERNESS WITH LIGHT PALPATION OF OF THE LOWER LUMBAR SPINE AND SACRAL REGION INTO RIGHT SI AND PARASPINALS AND BUTTOCK. INCREASED M. TONE DIANA PARASPINALS R > LEFT. TREATMENT: NEUROMUSCULAR REEDUCATION - RETRAINING OF MVMT AND POSTURE FOR SITTING, LYING AND STANDING ACTIVITIES. Balance/Special Test Scores Oswestry Low Back Score: 18 Goals Goal 1:: DECREASE C/O LOW BACK AND R LE SX'S BY 50% Goal Time Frame: 4-6 Weeks Goal 2:: IMPROVE PERSONAL CARE, LIFTING, WALKING, SITTING, STANDING, SLEEP, SOCIAL LIFE, TRAVEL AND HOMEMAKING FUNCTION WITH OSWESTRY SCORE IMPROVEMENT OF 5 POINTS. Goal Time Frame: 4-6 Weeks Goal 3:: INSTRUCT IN PROPHYLAXIS Goal Time Frame: 4-6 Weeks Rehabilitation Potential Rehabilitation Potential: Fair Anticipated Interventions Patient/Client Instruction: Educate patient on: Condition, Plan of Care and Risk Factors For the Purpose of:: To improve self management Therapeutic Exercise to Include: Strength training, Body mechanics, Postural training, Flexibilty training, Gait and locomotor training, Neuromotor development and Dynamic Lumbar Stabilization For the Purpose of:: To decrease pain, To increase ROM, To improve muscle performance and motor function, To increase tolerance to activity/condition/position, To improve ability of physical actions for home/community/work/leisure and To improve gait and locomotor functions Text: Thank you for the opportunity to evaluate your patient. For Medicare and Medicare HMO plans, please review the plan of care and approve it. It will need to be FAXED BACK to us at [phone] for Medicare purposes. For Medicare only, by signing this I certify the plan of care. Please let me know if there are questions or concerns regarding this plan of care. Physician Signature: Date:
--- NOTE | 2023-04-19 14:51 | HP.PTDCSUM ---
Discharge Summary D/C summary: It has been my pleasure to treat MONICA VO referred by Dr. Michelle Arango DO, with the diagnosis of R SIDED SCIATICA for a total of 10 visit(s). Discharge Date: 04/19/23 Please see the following information for a summary of their discharge status. Subjective Subjective: PATIENT REPORTS BEFORE PT SHE HAD SHARP PAIN AND NOW SHE GETS DISCOMFORT/STIFFNESS. THE DISCOMFORT/STIFFNESS COMES AND GOES. MY MOBILITY IS DEFINATELY BETTER. DEFINATELY GOING IN THE RIGHT DIRECTION. PATIENT REPORTS SHE HAS PICTURES OF HER EX'S AND SHE FEELS THEY ARE VERY DOABLE AT HOME. SHE STATES SHE FEELS READY TO BE DISCHARGED. Pain R hip: Pain Intensity (Out of 10): 0 Overall Improvement % Improvement: 85 Objective Objective/Function: PATIENT WAS SEEN TODAY FOR RE-ASSESSMENT OF PROGRESS TOWARD THE SET PT GOALS AND THE NEED FOR FURTHER PHYSICAL THERAPY VS READINESS FOR DISCHARGE. UPON EXAM TODAY: Motor deficit: R HIP 4/5, KNEE 5/5, ANKLE 5/5. L HIP 4/5, KNEE 5/5, ANKLE 5/5. Dural Signs: NEGATIVE DIANA LE'S. Sensation: DIANA LE LIGHT TOUCH SENSATION GROSSLY INTACT AND SYMMETRICAL. Lumbar mvmt loss: flex - NIL ext - MOD R SG - MOD L SG - MOD PATIENT DENIES INCREASED PAIN WITH LUMBAR ROM TESTING ALL PLANES TODAY. Core strength: FAIR. Palpation: PATIENT DENIES TENDERNESS WITH PALPATION THROUGHOUT DIANA LOWER THORACIC, LUMBAR, SACRAL, SI JT, DIANA HIP AND LATERAL THIGH REGIONS INCLUDING ALL THROUGHOUT R IT BAND REGION BUT SHE STATES R THIGH FEELS STIFFER TO HER THAN LEFT. OTHER: DIANA HIP ROM WFL AND PATIENT DENIES INCREASED PAIN WITH TESTING. HOME INSTRUCTIONS: HEP CHECK AND REINFORCEMENT OF PROPER BODY MECHANICS AND APPROPRIATE ACTIVITY MODIFICATIONS. PATIENT COMMUNICATED A GOOD UNDERSTANDING OF ALL INSTRUCTIONS GIVEN AND IS APPROPRIATE FOR AND AGREEABLE TO DISCHARGE. Goals Goal 1:: DECREASE C/O LOW BACK AND R LE SX'S BY 50% Goal Progress: Goal Met Goal 2:: IMPROVE PERSONAL CARE, LIFTING, WALKING, SITTING, STANDING, SLEEP, SOCIAL LIFE, TRAVEL AND HOMEMAKING FUNCTION WITH OSWESTRY SCORE IMPROVEMENT OF 5 POINTS. Goal Progress: Goal Met Goal 3:: INSTRUCT IN PROPHYLAXIS Goal Progress: Goal Met Plan Plan: D/C TO HEP. D/C Information d/c sentence: If there are questions or concerns regarding this patient's physical therapy, please feel free to call me at [phone]. Thank you for the referral of this patient. Sincerely, Zelda Marie, PT, Cert MDT Balance/Gait/Functional tests Balance/Special Test Scores Oswestry Low Back Score: 7 Improvement % Improvement: 85
== END 2023-04-19 19:00 | disposition home or self-care (01) ==
LOC: PT 14:00
PROVIDERS: PCP Internal Medicine; Visit Provider Internal Medicine
DX: M54.31 Sciatica, right side (principal)
CPT/HCPCS: 97110; 97112; 97162; 97164

== ENCOUNTER → 2023-05-26 | Outpatient (CLI) | payer MEDICARE, SELFPAY ==
--- NOTE | 2023-05-26 12:44 | RAD_ITS ---
STUDY: X-RAY - LUMBAR SPINE REASON FOR EXAM: Female, 82 years old. Low back pain. TECHNIQUE: 4 view(s) of the lumbar spine were obtained. COMPARISON: None FINDINGS: Osteopenia. Slightly accentuated lordosis. Mild dextroscoliosis. Normal alignment of the vertebral bodies. Diffuse mild lower thoracic and lumbosacral facet sclerosis. Mild diffuse intervertebral disc space narrowing with small osteophytes. Cholecystectomy clips and vascular calcifications. RAD/L/S Spine Min 4 Views IMPRESSION: Osteopenia with mild diffuse lower thoracic and lumbosacral spondylosis as described. Electronically Signed: Iraj Navarro MD at 13:32 EST ,
== END | disposition home or self-care (01) ==
LOC: MTRAD 12:43
PROVIDERS: PCP Internal Medicine; Referring Provider Chiropractor; Visit Provider Chiropractor
DX: M54.51 Vertebrogenic low back pain (principal); M45.A4 Non-radiographic axial spondyloarthritis of thoracic region
CPT/HCPCS: 72110

== ENCOUNTER → 2024-01-03 | Outpatient (CLI) | payer MEDICARE, SELFPAY ==
--- NOTE | 2024-01-03 12:34 | BI_ITS ---
MAMMOGRAPHY - UNILATERAL SCREENING: LEFT BREAST REASON FOR EXAM: Female, 83 years old. Routine annual screening examination (unilateral). PERTINENT HISTORY: Personal history of breast cancer. Prior right mastectomy with chemotherapy. TECHNIQUE: Digital unilateral breast jeanie (3D mammographic acquisition) in the CC and MLO projections. 2-D mediolateral oblique (MLO) and craniocaudad (CC) views of both breasts were obtained. CAD: Full Field Digital Mammography with Computer Added Detection was performed. COMPARISON: Comparison is made with prior study dated December 24, 2022 and December 22, 2021. FINDINGS: Breast Composition: There are scattered areas of fibroglandular density. There are no dominant masses or suspicious calcifications. No other significant abnormalities are identified. There has been no significant change since the prior study. BI/SCREEN MAMM (CAD) W/JEANIE UNI L IMPRESSION: Stable unilateral screening mammogram. Yearly follow-up mammogram recommended. (A) ASSESSMENT CATEGORY: BIRADS Category 1: Negative. A letter regarding these results will be sent to the patient by the facility within 30 days. Approximately 10% of breast cancers are not detected by mammography. A normal mammogram should not delay biopsy of a clinically suspicious abnormality. [id number] Electronically Signed: Ok Wolfe MD at 13:31 EDT ,
== END | disposition home or self-care (01) ==
LOC: OPBI 12:34
PROVIDERS: PCP Internal Medicine; Referring Provider Obstetrics & Gynecology; Visit Provider Obstetrics & Gynecology
DX: Z12.31 Encounter for screening mammogram for malignant neoplasm of breast (principal); Z85.3 Personal history of malignant neoplasm of breast; Z92.21 Personal history of antineoplastic chemotherapy; Z90.11 Acquired absence of right breast and nipple
CPT/HCPCS: 77063; 77067

== ENCOUNTER → 2024-05-17 | Outpatient (CLI) | payer MEDICARE, SELFPAY | END | disposition home or self-care (01) | PROVIDERS: PCP Internal Medicine; Referring Provider Obstetrics & Gynecology; Visit Provider Obstetrics & Gynecology | DX: R35.1 Nocturia (principal) | CPT/HCPCS: 87086 ==

== ENCOUNTER 2024-07-02 07:48 | Inpatient (IN) | payer MEDICARE, SELFPAY ==
[2024-07-02] VITALS (15 sets, daily range): BP systolic 113–157; BP diastolic 55–98; PULSE 77–99; RESP 14–18; TEMP 36.3–36.8; O2SAT 94–99; BMI 29.1; BMI 27.3; BMI 28.8
--- NOTE | 2024-07-02 07:52 | EKG12_ITS ---
Test Reason : STROKE TEAM Blood Pressure : */* mmHG Vent. Rate : 89 BPM Atrial Rate : 89 BPM P-R Int : 178 ms QRS Dur : 82 ms QT Int : 376 ms P-R-T Axes : 73 68 45 degrees QTcB Int : 457 ms Normal sinus rhythm Nonspecific ST abnormality Abnormal ECG Confirmed by DAMIEN CHILDS, SANTI ([id number]), photo editor MEREDITH CAI ([id number]) on 07/03/2024 10:54:44 A M Referred By: Confirmed By: SANTI QUEZADA MD
--- NOTE | 2024-07-02 07:52 | CT_ITS ---
We are attempting to reach an attending provider to discuss findings. An addendum with communication details will be sent when the communication is complete. EXAM: CT HEAD WITHOUT INTRAVENOUS CONTRAST CLINICAL INDICATION: Neuro deficit, acute, stroke suspected -- Patient has an expressive aphasia TECHNIQUE: Multiple axial images were obtained of the head without intravenous contrast. This CT exam was performed using one or more of the following dose reduction techniques: automated exposure control, adjustment of the mA and/or kV according to patient size, and/or use of iterative reconstruction technique. 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 Small focus of diminished density within the left external capsule may represent an acute or chronic infarct. No hemorrhage or mass effect. Areas of diminished white matter density noted within both cerebral hemispheres suggestive of chronic microvascular change. Prominence of the cortical sulci and ventricles related to volume loss change. Posterior fossa is normal. Basilar cisterns are patent. BONES/JOINTS: Normal calvarium. SINUSES: No acute sinusitis. MASTOID AIR CELLS: Normal. Clear. CT/STROKE Brain/Head without Cont IMPRESSION: 1. Left external capsule lesion which may represent an acute or chronic lacunar type infarct. Recommend correlation with diffusion weighted MR imaging to further differentiate. 2. Aspect score 9/10. Electronically Signed: Axel Bowman MD at 8:08 EST ,
--- NOTE | 2024-07-02 07:53 | CT_ITS ---
We are attempting to reach an attending provider to discuss findings. An addendum with communication details will be sent when the communication is complete. INDICATION: Neuro deficit, acute, stroke suspected -- Patient has an expressive aphasia EXAMINATION: CTA HEAD - CTA Head and Neck Stroke W/ Contrast (and W/O if performed) TECHNIQUE: Sayre of Jon/head CT angiogram protocol was performed following IV contrast. Routine carotid CT angiogram protocol was performed with IV contrast. NASCET criteria using the distal ICAs for comparison were used for evaluation of stenoses. 3D reconstructions were reviewed of the CT angiogram head and neck. A radiation dose optimization technique was used for this scan. IV Contrast dosage and agent: 100 cc [id number] COMPARISON: None. FINDINGS: --Anterior cerebral circulation: ACAs: No significant stenosis at the visualized segments. ACOM: Not present. MCAs: No significant stenosis at the visualized segments. --Posterior cerebral circulation: PCOMs: Left P-comm is present aurist: No significant stenosis at the visualized segments. BASILAR ARTERY: No significant stenosis. --Carotid and vertebral circulation: AORTIC ARCH AND BRANCHES: Normal anatomy, patent. RIGHT CCA: No occlusion, significant stenosis or dissection. RIGHT ICA: Mild calcific plaquing at the carotid bulb. No occlusion, significant stenosis or dissection. LEFT CCA: No occlusion, significant stenosis or dissection. LEFT ICA: Mild calcific plaquing at the carotid bulb. No occlusion, significant stenosis or dissection. RIGHT VERTEBRAL ARTERY: No occlusion, significant stenosis or dissection. LEFT VERTEBRAL ARTERY: No occlusion, significant stenosis or dissection. NECK SOFT TISSUES: Several thyroid nodules are identified measuring 7 mm and less in size. LUNG APICES: Clear. BONES: Moderate diffuse spondylosis of the cervical spine. CT/STROKE CTA Head AND Neck W/Con IMPRESSION: No evidence of arterial stenosis, occlusion, dissection or intracranial aneurysm. Electronically Signed: Axel Bowman MD at 8:22 EST ,
--- NOTE | 2024-07-02 07:54 | ED.VIS.STROK ---
HPI History of Present Illness Chief Complaint: Neuro S/Sx Informant: patient and spouse/S.O. Onset/Context/Timing Onset: Yesterday (1999) Context: Sudden Onset Timing: Continuous Quality and Location: Positive for Slurred Speech (Per patient) Onset: Yesterday at 1999 Current Severity: Moderate Maximum Severity: Moderate Worsened by: Nothing Relieved by: Nothing Associated Symptoms Associated Symptoms: Negative for Headache, Nausea or Vomiting Narrative Narrative: Patient is an 83-year-old woman. She has history of hypertension hyperlipidemia per old records. She presents because of slurred speech per patient. Onset of symptoms last evening at 8 PM. She denies headache. Denies visual disturbance. She denies paresthesia, anesthesia or motor weakness of upper lower extremity. Denies problems with coordination or balance. Nurse states her words are not slurred. Patient told the triage nurse that her words are slurred. Prior similar symptoms: No Recent Illness/Hospitalization: No PFSH PFSH Medical History Lumbar radiculopathy Lumbar strain Pre-diabetes Abnormal Pap smear of cervix Breast cancer Hyperlipidemia Hypertension Home Medications ?Medication ?Instructions ?Recorded ?Last Taken ?Type losartan 100 mg tablet 100 mg PO QDAY 10/18/17 Unknown History amlodipine 2.5 mg tablet 2.5 mg PO DAILY 04/28/22 Unknown History atorvastatin 20 mg tablet (Lipitor) 20 mg PO DAILY 04/28/22 Unknown History tolterodine 2 mg capsule,extended 2 mg PO Q24H #30 caps 06/01/24 Unknown Rx release 24 hr (Detrol [place]) gabapentin 100 mg capsule 100 mg PO QHS 07/02/24 Unknown History Allergy/AdvReac Type Severity Reaction Status Date / Time metronidazole (From Flagyl) Allergy Mild hives Verified 07/02/24 07:50 Family History Father Heart disease Diabetes Surgical History H/O tubal ligation ovarian wedge resection S/P right mastectomy S/P cholecystectomy Social History Smoking Status: Never smoker alcohol intake: never substance use type: does not use caffeine: Yes what type of physical activity do you participate in: walking frequency: 3-4 times per week seatbelt use: always do you feel safe at home: Yes additional social history: -Pam 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 ROS ROS ED Constitutional Constitutional ED: Denies chills, fever(s), subjective, sweats or weakness Eyes Eyes: Denies blurry vision, change in vision or diplopia ENT ENT ED: Denies ear pain, rhinorrhea or sore throat Cardiovascular Cardiovascular: Denies chest pain, palpitations or paroxysmal nocturnal dyspnea Respiratory/Chest Respiratory/Chest: Denies cough, dyspnea, dyspnea on exertion or paroxysmal nocturnal dyspnea Gastrointestinal Gastrointestinal: Denies abdominal pain, nausea or vomiting Musculoskeletal Musculoskeletal: Denies arthralgias or myalgias Integumentary Denies rash Neurologic Neurologic: Reports other Details: Trouble with speech ; Denies headache(s), paresthesias or weakness Psychiatric Psychiatric: Denies anxiety Hematologic/Lymphatic Hematologic/Lymphatic: Denies easy bleeding or easy bruising EXAM Physical Exam Const Vital Signs: 07/02/24 07:51 07/02/24 07:52 07/02/24 07:52 Temperature 98 F Temperature Source Temporal Pulse Rate 99 98 Respiratory Rate 16 14 Blood Pressure 138/93 H 138/93 H Blood Pressure Mean 108 108 Pulse Ox 98 98 98 Oxygen Delivery Method Room Air Room Air Room Air 07/02/24 07:54 07/02/24 08:22 07/02/24 08:30 Temperature Temperature Source Pulse Rate 99 78 88 Respiratory Rate 15 15 16 Blood Pressure 138/93 H 154/87 H 113/55 L Blood Pressure Mean 108 109 74 Pulse Ox 98 99 95 Oxygen Delivery Method Room Air Room Air Room Air Positive well nourished and well developed Constitutional Narrative: BMI is 29.1. General Appearance ED: well developed HEENT Reports moist mucous membranes atraumatic Nose: other Other Details: Nares patent. Ears normal. Posterior pharynx is normal. There is no deviation tongue with protrusion. Eyes PERRL and EOMs intact bilaterally Eyes Narrative: There is no nystagmus. There is no visual field cut. General Eye ED: Negative for pale conjunctiva or scleral icterus Neck no lymphadenopathy, supple and no JVD Resp normal respiratory effort and clear to auscultation bilaterally Cardio no murmurs Rate: regular rate Rhythm: regular rhythm Heart Sounds: S1 normal and S2 normal GI normal to inspection, nondistended, normoactive bowel sounds, soft to palpation and non-tender Extremity normal to inspection General Extremety ED: Negative for deformity or edema General Extremity: Negative for deformity or edema Neuro oriented x3, CN's II-XII intact bilaterally and no sensory deficits noted [place] Coma Scale: document GCS findings Spontaneous Extensor Response Oriented 11 Sensorium / Orientation: alert Psych mental status grossly normal Skin no wounds NIHSS NIHSS Initial: 1a Level of Consciousness: 0 1b LOC Questions (Score 2 if aphasic/stupor): 2 1c LOC Commands (Only score 1st attempt): 0 2 Best Gaze (If aphasic, use reflexive mvmts.): 0 3 Visual: 0 4 Facial Palsy: 0 5 Motor Arm Right (UN = amputation/fusion): 0 5 Motor Arm Left: 0 6 Motor Leg Right: 0 6 Motor Leg Left: 0 7 Limb ataxia (Only + if out of proportion): 0 8 Sensory (Aphasia/stupor=0 or 1, coma=2): 0 9 Best Language: 2 10 Dysarthria (mute, coma=2, intubated=UN): 0 11 Extinction and Inattention (only scored if +): 0 Total Score: 4 MDM MDM MDM Narrative Medical decision making narrative: Per patient's symptoms started yesterday at 1999. According to the he first noted a difference . They were engraving things. Apparently she was having trouble doing this and felt she was confused. She was adamant there was nothing wrong and reason she did not present . History & Record Review Additional record(s) reviewed:: Prior outpatient record (Gynecologic visit May 17, [address] Paola Madison. And [employer] visit April 2023. And visit for radiculopathy March 16, 2023 by GLORY Whitaker, urgent care. Patient has annual visits with Dr. Paola Madison for [employer] follow-up.), Prior ED visit (No prior ER visits) and Prior labs (Minimal laboratory studies in the past 5 years.) Lab Data Attestation: I reviewed the patient's lab results. Lab results narrative: CBC is unremarkable. Coags are normal. Basic metabolic panel reveals an elevated glucose of 149. Labs: Laboratory Results - last 24 hr 07/02/24 07:58 WBC 7.2 RBC 5.34 Hgb 14.8 Hct 44.7 MCV 83.7 MCH 27.7 MCHC 33.1 RDW Std Deviation 42.5 RDW Coeff of Pao 14.0 Plt Count 240 MPV 10.0 Immature Gran % (Auto) 0.400 Neut % (Auto) 47.0 Lymph % (Auto) 35.3 [place] % (Auto) 13.7 H Eos % (Auto) 3.3 Baso % (Auto) 0.3 Absolute Neuts (auto) 3.4 Absolute Lymphs (auto) 2.53 Nucleated RBC % 0 PT 13.1 INR 1.0 APTT 27.1 Sodium 139 Potassium 3.5 Chloride 106 Carbon Dioxide 25.0 Anion Gap 8 BUN 18 Creatinine 0.99 Estim Creat Clear Calc 36.45 Est GFR (MDRD) Af Amer 69 Est GFR (MDRD) Non-Af 57 L BUN/Creatinine Ratio 18.2 Glucose 149 H Calcium 10.1 Troponin I High Sens 12 Radiography Chest X-Ray - ED: 1 View, Read by ED Physician, Unchanged, Normal, Heart, Mediastinum, Bony Structures, No Acute Disease and Chronic Changes Diagnostic Testing: Clinical Impression(s) from Imaging Studies Brain CT 07/02/24 07:52 IMPRESSION: 1. Left external capsule lesion which may represent an acute or chronic lacunar type infarct. Recommend correlation with diffusion weighted MR imaging to further differentiate. 2. Aspect score 9/10. Electronically Signed: Axel Bowman MD at 8:08 EST , ADDENDUM: 07/02/24818 IMPRESSION: 1. Left external capsule lesion which may represent an acute or chronic lacunar type infarct. Recommend correlation with diffusion weighted MR imaging to further differentiate. 2. Aspect score 9/10. N.B. : The above Results were Read Back by Axel Bowman MD to Ronen Queen MD, and understanding confirmed on 07/02/2024 08:12:05 (ET). Electronically Signed: Axel Bowman MD at 8:08 EST , Head/Neck CTA 07/02/24 07:53 IMPRESSION: No evidence of arterial stenosis, occlusion, dissection or intracranial aneurysm. Electronically Signed: Axel Bowman MD at 8:22 EST , ADDENDUM: 07/02/24 0829 IMPRESSION: No evidence of arterial stenosis, occlusion, dissection or intracranial aneurysm. N.B. : The above Results were Read Back by Axel Bowman MD to DEBBIE Wang, and understanding confirmed on 07/02/2024 08:22:10 (ET). Electronically Signed: Axel Bowman MD at 8:22 EST , EKG Initial EKG: Attestation: I personally reviewed and interpreted this EKG as follows: Interpretation: Sinus Rhythm (Rate is 89. There is decreased anterior force. There is nonspecific ST-T wave changes noted. SC interval is under 78 ms. QS duration 82 ms. QT duration 3 and 76 ms. [place] is normal.) Management Discussion w/another healthcare provider: Hospitalist (Case was discussed with Dr. Marko Menchaca. Patient was assigned to PCU as observation status per discussion with Dr. Mora) and Radiologist (Received call from radiologist regarding new finding on CAT scan and read report for CTA. There was a discussion with him regarding the CT as well.) Stroke Documentation Questions Stroke Team Activated: Yes Reviewed Inclusion/Exclusion criteria: No IV Thrombolytic Administered: No No contraindications from thrombolytic administration: No Risks, Benefits, Alternatives Discussed: No Not given: Patient refusal: No (Patient outside the window.) Discharge Plan Dx/Rx/DC Orders Clinical Impression: Acute lacunar stroke, Hypertension, Hyperlipidemia, Expressive aphasia, Disoriented to time Disposition Disposition: Acute Care [facility]
[2024-07-02 08:07] LABS: Absolute Lymphocyte Count 2.53 X10^3/uL (0.83-4.51); Absolute Neutrophil Count 3.4 X10^3/uL (2.0-7.7); Basophil# 0.02 X10^3/uL; Basophil% 0.3 % (0-1); Eosinophil# 0.24 X10^3/uL; Eosinophils% 3.3 % (0-5); Hematocrit 44.7 % (37-47); Hemoglobin 14.8 g/dL (12.0-15.0); Lymphocyte # 2.53 X10^3/ul (0.83-4.51); Lymphocyte % 35.3 % (19-41); Mean Corp Hgb Conc 33.1 g/dL (32-36); Mean Corpuscular Hgb 27.7 pg (27.0-32.0); Mean Corpuscular Volume 83.7 fL (81-99); Monocyte# 0.98 X10^3/uL; Monocyte% 13.7 % (0-10); NRBC Flagged by Analyzer 0 % (0-5); Neutrophil # 3.37 X10^3/uL (2.7-7.7); POSITIVE MORPHOLOGY YES; Platelet Count 240 K/mm3 (150-450); RBC Distribution Width SD 42.5 fl (35.1-43.9); Red Blood Count 5.34 M/mm3 (4.2-5.4); White Blood Count 7.2 K/mm3 (4.4-11.0)
[2024-07-02 08:14] LABS: Prothrombin Time (Protime)PT. 13.1 SECONDS (11.7-14.9)
[2024-07-02 08:15] LABS: Partial Thromboplast Time 27.1 Seconds (24.1-36.2)
--- NOTE | 2024-07-02 08:15 | RAD_ITS ---
EXAM: XR CHEST, 1 VIEW CLINICAL INDICATION: Neuro deficit, acute, stroke suspected TECHNIQUE: Frontal view of the chest. COMPARISON: XR Chest dated 04/03/2019 FINDINGS: LUNGS AND PLEURAL SPACES: Normal. No consolidation or edema. No pneumothorax. No effusion. HEART: Normal heart size. MEDIASTINUM: No mediastinal or hilar mass. BONES/JOINTS: No acute abnormality. RAD/Chest 1 View IMPRESSION: No acute cardiopulmonary abnormality. No interval change. Electronically Signed: Axel Bowman MD at 9:28 EST ,
[2024-07-02 08:26] LABS: Differential Indicated SCAN CRITERIA MET
[2024-07-02 08:27] LABS: Anion Gap 8 (5-15); BUN 18 mg/dL (7-18); BUN/Creat Ratio 18.2 RATIO (10-20); Calcium,Total 10.1 mg/dL (8.5-10.1); Chloride 106 mmol/L (98-107); Creatinine, Serum 0.99 mg/dL (0.55-1.02); EST Glomerular Filtration Rate 57 mL/min (>60); Est Glom Filt Rate - Afr Amer 69 mL/min (>60); Estimated Creatinine Clearance 36.45 ml/min; Glucose 149 mg/dL (74-106); Potassium 3.5 mmol/L (3.5-5.1); Sodium Level 139 mmol/L (136-145); Troponin-I HS 12 pg/mL (3.0-54.0)
--- NOTE | 2024-07-02 10:03 | ECHOD_ITS ---
Reason For Study: TIA/CVA Procedure This was a 2D Doppler, Color Flow transthoracic echocardiogram. Myocardial strain analysis was performed in this exam to aid in the assessment of cardiac function. The study was technically difficult. Exam performed portable in patient room. Left Ventricle Normal LV size. The left ventricular ejection fraction is 70 %. Resting LV gradient 48 mmHg. Valsalva LV gradient 60 mmHg. No regional wall motion abnormalities noted. Right Ventricle Normal RV size. Normal systolic function. Atria Normal left atrium. Normal right atrium. Mitral Valve Normal mitral valve. Tricuspid Valve Normal tricuspid valve. Aortic Valve Trisinus/trileaflet aortic valve. Pulmonic Valve Normal pulmonic valve. Great Vessels Normal aortic root. The pulmonary artery is normal size. Inferior vena cava collapse with respiration. Pericardium/Pleural No pericardial effusion. MMode/2D Measurements & Calculations LVIDd: 3.2 cm IVSd: 1.1 cm LVOT diam: 1.9 cm LVIDs: 1.5 cm LVPWd: 0.91 cm LVOT area: 2.7 cm2 RVDd: 2.4 cm FS: 52.7 % asc Aorta Diam: 3.1 cm LAV(MOD-bp): 18.5 ml LVAd ap4: 15.2 cm2 LAV(MOD-bp) Indexed: 11.6 ml/m2 LVLd ap4: 7.5 cm LAV(MOD-sp2): 22.5 ml EDV(MOD-sp4): 24.8 ml LAV(MOD-sp4): 12.5 ml EDV(sp4-el): 26.3 ml LVAs ap4: 5.9 cm2 LVLs ap4: 6.0 cm ESV(MOD-sp4): 5.0 ml ESV(sp4-el): 4.9 ml EF(MOD-sp4): 79.7 % EF(sp4-el): 81.5 % LVAd ap2: 14.8 cm2 SV(MOD-sp4): 19.8 ml SV(MOD-sp2): 17.2 ml LVLd ap2: 7.4 cm SI(MOD-sp4): 12.3 ml/m2 SI(MOD-sp2): 10.7 ml/m2 EDV(MOD-sp2): 24.2 ml EDV(sp2-el): 25.0 ml LVAs ap2: 7.1 cm2 LVLs ap2: 6.4 cm ESV(MOD-sp2): 6.9 ml ESV(sp2-el): 6.7 ml EF(MOD-sp2): 71.3 % SV(sp4-el): 21.5 ml Ao sinus diam: 2.[address] Junction: 2.4 cm LA dimension(2D): 2.3 cm LA A4 area: 7.7 cm2 RA A4 area: 6.3 cm2 TAPSE: 1.6 cm Time Measurements MV dec time: 0.31 sec Doppler Measurements & Calculations MV E max navarro: 63.5 cm/sec Lat Peak E' Navarro: 12.2 cm/sec Med Peak E' Navarro: 5.3 cm/sec MV A max navarro: 90.5 cm/sec E/E' lat: 5.2 E/E' med: 12.1 MV E/A: 0.70 MV dec slope: 204.4 cm/sec2 Ao V2 max: 165.6 cm/sec LV V1 max: 141.1 cm/sec Ao max P.0 mmHg LV V1 max P.0 mmHg Ao V2 mean: 141.6 cm/sec LV V1 mean P.1 mmHg Ao mean P.2 mmHg LV V1 mean: 109.0 cm/sec Ao V2 VTI: 29.1 cm LV V1 VTI: 27.4 cm AV (velocity ratio): 0.94 ARTURO(I,D): 2.6 cm2 ARTURO(V,D): 2.3 cm2 SV(LVOT): 74.5 ml PA V2 max: 121.3 cm/sec ECHO/Echo Complete Interpretation Summary Normal LV size. The left ventricular ejection fraction is 70 %. Valsalva LV gradient 60 mmHg. The global longitudinal strain is normal. The global longitudinal strain = -17. 7 % (normal). Ordering Physician: Marko Menchaca Referring Physician: Michelle Arango M.D. Performed By: Liliam Shepard RDCS
--- NOTE | 2024-07-02 10:03 | MRI_ITS ---
We are attempting to reach an attending provider to discuss findings. An addendum with communication details will be sent when the communication is complete. EXAM: MR HEAD WITHOUT INTRAVENOUS CONTRAST CLINICAL INDICATION: CVA TECHNIQUE: Multiplanar and multisequence MR images of the brain were obtained without intravenous contrast. COMPARISON: CT brain 07/02/2024 FINDINGS: BRAIN AND EXTRA-AXIAL SPACES: Focal areas of restricted diffusion seen within the left external capsule and within the left frontal lobe/prefrontal gyrus consistent with acute ischemic change. No hemorrhage or mass effect. Increased T2 signal intensity within the cerebral white matter suggestive of chronic microvascular change. Chronic left occipital cortical infarct again noted. Ventricles are normal size for the patient''s age. Basal cisterns are patent. SELLA: Normal. Normal sella turcica, pituitary gland, infundibular stalk, optic chiasm and hypothalamus. AUDITORY SYSTEM: Normal. The internal auditory canals are patent. BONES/JOINTS: Intact calvarium. SINUSES: Unremarkable as visualized. Clear. MASTOID AIR CELLS: Clear. ORBITS: Unremarkable as visualized. Both globes, extraocular muscles, optic nerves and retrobulbar fat appear unremarkable. VASCULATURE: Unremarkable as visualized. Normal flow voids in the major intracranial circulation. MRI/Brain without Contrast IMPRESSION: Focal areas of restricted diffusion seen within the left external capsule and within the left frontal lobe/prefrontal gyrus consistent with acute ischemic change. Electronically Signed: Axel Bowman MD at 15:55 EST ,
--- NOTE | 2024-07-02 13:49 | HP.PCM.HOS_ITS ---
[facility] - General General Date of Admission: 07/02/24 Date of Service: 07/02/24 Chief Complaint: Difficulty speaking HPI Narrative MONICA VO, is a 83 F who presents with difficulty speaking. This is an 83-year-old female that is normally very high functioning, was doing some grieving on this past and then had sudden onset of having difficulty finding words. Symptoms actually got worse on Wednesday but they did not seek attention until today. Patient was having issues with expressive aphasia naming items incorrectly. Patient underwent CAT scan that showed a left external capsule lesion may represent an acute or chronic lacunar type infarct. Patient was seen by [facility] teleneurology recommend additional further stroke workup. Patient was not a candidate for tenecteplase given her delayed presentation. [facility] Medical History Lumbar radiculopathy Lumbar strain Pre-diabetes Abnormal Pap smear of cervix Breast cancer Hyperlipidemia Hypertension Home Medications ?Medication ?Instructions ?Recorded ?Last Taken ?Type losartan 100 mg tablet 100 mg PO DAILY 10/18/17 Unknown History amlodipine 2.5 mg tablet 2.5 mg PO DAILY 04/28/22 Unknown History atorvastatin 20 mg tablet (Lipitor) 20 mg PO DAILY 04/28/22 Unknown History tolterodine 2 mg capsule,extended 2 mg PO Q24H #30 caps 06/01/24 Unknown Rx release 24 hr (Detrol [place]) gabapentin 100 mg capsule 100 mg PO QHS 07/02/24 Unknown History Allergy/AdvReac Type Severity Reaction Status Date / Time metronidazole (From Flagyl) Allergy Mild hives Verified 07/02/24 07:50 Family History Father Heart disease Diabetes Surgical History H/O tubal ligation ovarian wedge resection S/P right mastectomy S/P cholecystectomy Social History Smoking Status: Never smoker alcohol intake: never substance use type: does not use caffeine: Yes what type of physical activity do you participate in: walking frequency: 3-4 times per week seatbelt use: always do you feel safe at home: Yes additional social history: -Pam 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 Vital Signs Vital Signs Vital Signs: 07/02/24 07:51 07/02/24 07:52 07/02/24 07:52 Temperature 36.6 C Temperature Source Temporal Pulse Rate 99 98 Respiratory Rate 16 14 Blood Pressure 138/93 H 138/93 H Blood Pressure Mean 108 108 Blood Pressure Source Blood Pressure Position Blood Pressure Location Pulse Ox 98 98 98 Oxygen Delivery Method Room Air Room Air Room Air 07/02/24 07:54 07/02/24 08:22 07/02/24 08:30 Temperature Temperature Source Pulse Rate 99 78 88 Respiratory Rate 15 15 16 Blood Pressure 138/93 H 154/87 H 113/55 L Blood Pressure Mean 108 109 74 Blood Pressure Source Blood Pressure Position Blood Pressure Location Pulse Ox 98 99 95 Oxygen Delivery Method Room Air Room Air Room Air 07/02/24 08:59 07/02/24 09:03 07/02/24 09:30 Temperature 36.8 C Temperature Source Pulse Rate 77 77 77 Respiratory Rate 14 15 18 Blood Pressure 157/98 H 157/98 H 146/81 H Blood Pressure Mean 117 117 102 Blood Pressure Source Blood Pressure Position Blood Pressure Location Pulse Ox 97 95 98 Oxygen Delivery Method Room Air Room Air 07/02/24 10:03 Temperature 36.6 C Temperature Source Oral Pulse Rate 79 Respiratory Rate 16 Blood Pressure 136/75 H Blood Pressure Mean 95 Blood Pressure Source Monitor Blood Pressure Position Semi-Fowlers Blood Pressure Location Left Arm Pulse Ox 94 Oxygen Delivery Method Room Air Weight Weight: 67.086 kg Body Mass Index (BMI) 28.8 Physical Exam Const alert Constitutional Narrative: Able to tell me her name and she is in the hospital. HEENT normocephalic, head/scalp atraumatic, hearing grossly normal bilaterally, moist oral mucous membranes, oropharynx normal and dentition normal Eyes PERRL and EOMs intact bilaterally Eyes Narrative: No icterus Neck no lymphadenopathy Neck Narrative: No bruits Resp normal respiratory effort, no retractions, no use of accessory muscles and clear to auscultation bilaterally Cardio regular rate, regular rhythm, S1 normal heart sound and S2 normal heart sound GI normal to inspection, nondistended, normoactive bowel sounds, soft to palpation, non-tender and non-distended Extremity normal to inspection, full ROM and no clubbing, cyanosis or edema Neuro moves all extremities and no focal motor deficits Neuro Narrative: Expressive aphasia with items. Sensorium / Orientation: awake Coordination / Balance: [id number] test normal and [id number] test normal Motor Exam: strength 5/5 throughout Results Lab / Micro Data 07/02/24 07:58 07/02/24 07:58 Labs: Laboratory Results - last 24 hr 07/02/24 07:58: WBC 7.2, RBC 5.34, Hgb 14.8, Hct 44.7, MCV 83.7, MCH 27.7, MCHC 33.1, RDW Std Deviation 42.5, RDW Coeff of Pao 14.0, Plt Count 240, MPV 10.0, Immature Gran % (Auto) 0.400, Neut % (Auto) 47.0, Lymph % (Auto) 35.3, [place] % (Auto) 13.7 H, Eos % (Auto) 3.3, Baso % (Auto) 0.3, Absolute Neuts (auto) 3.4, Absolute Lymphs (auto) 2.53, Nucleated RBC % 0, PT 13.1, INR 1.0, APTT 27.1, Sodium 139, Potassium 3.5, Chloride 106, Carbon Dioxide 25.0, Anion Gap 8, BUN 18, Creatinine 0.99, Estim Creat Clear Calc 36.45, Est GFR (MDRD) Af Amer 69, E st GFR (MDRD) Non-Af 57 L, BUN/Creatinine Ratio 18.2, Glucose 149 H, Calcium 10.1, Troponin I High Sens 12 Imaging Radiology Impression Brain CT 07/02/24 07:52 IMPRESSION: 1. Left external capsule lesion which may represent an acute or chronic lacunar type infarct. Recommend correlation with diffusion weighted MR imaging to further differentiate. 2. Aspect score 9/10. Electronically Signed: Axel Bowman MD at 8:08 EST , ADDENDUM: 07/02/24818 IMPRESSION: 1. Left external capsule lesion which may represent an acute or chronic lacunar type infarct. Recommend correlation with diffusion weighted MR imaging to further differentiate. 2. Aspect score 9/10. N.B. : The above Results were Read Back by Axel Bowman MD to Ronen Queen MD, and understanding confirmed on 07/02/2024 08:12:05 (ET). Electronically Signed: Axel Bowman MD at 8:08 EST Reading Location ID and State: [id number] / [employer] , Service support , Head/Neck CTA 07/02/24 07:53 IMPRESSION: No evidence of arterial stenosis, occlusion, dissection or intracranial aneurysm. Electronically Signed: Axel Bowman MD at 8:22 EST Reading Location ID and State: [place] [employer] / [employer] , Service support , ADDENDUM: 07/02/24 0829 IMPRESSION: No evidence of arterial stenosis, occlusion, dissection or intracranial aneurysm. N.B. : The above Results were Read Back by Axel Bowman MD to DEBBIE Wang, and understanding confirmed on 07/02/2024 08:22:10 (ET). Electronically Signed: Axel Bowman MD at 8:22 EST Reading Location ID and State: [id number] / [employer] , Service support , Chest X-Ray 07/02/24 08:15 IMPRESSION: No acute cardiopulmonary abnormality. No interval change. Electronically Signed: Axel Bowman MD at 9:28 EST Reading Location ID and State: [id number] / [employer] , Service support , Assessment & Plan Assessment/Plan (1) Acute lacunar stroke: PLAN: Onset was the . Patient did not present to the and was therefore not a candidate for TNK. Patient started on aspirin will continue daily. Increase atorvastatin from 20 to 40 mg daily. MRI of the brain performed results pending. Check echocardiogram. Strength ortiz patient is doing well but we will have physical and Occupational Therapy see her as well as speech therapy. PLAN: Plan Hypertension: Stable. Continue with amlodipine. Continue with losartan. VTE prophylaxis: Low risk given current observation status Disposition: Patient under observation status. I think from a physical therapy standpoint she is going to do well but the question remains how her speech will come along. Discussed with the patient's at bedside Charges/Coding Visit Charges Inpatient E&M: 03343 Init Hosp L3
[2024-07-02] MEDS: Aspirin 325 MG Tablet PO (15:05)
[2024-07-02] MEDS: Losartan Potassium 100 MG Tablet PO (15:06)
[2024-07-02] MEDS: Tolterodine Tartrate 2 MG CAP.SA PO (15:06)
[2024-07-02] MEDS: Atorvastatin Calcium 40 MG Tablet PO (15:06)
[2024-07-02] MEDS: amLODIPine 2.5 MG Tablet PO (15:06)
[2024-07-02] MEDS: Gabapentin 100 MG Capsule PO (22:10)
[2024-07-02] MEDS: 0.9% Saline Lock 10 ML Syringe IV (22:10)
[2024-07-03 02:00] VITALS: BP 126/79; PULSE 81; RESP 17; TEMP 36.4; O2SAT 96
[2024-07-03 03:04] VITALS: BMI 28.8
[2024-07-03 05:53] VITALS: BP 120/72; PULSE 85; RESP 13; TEMP 36.1; O2SAT 94
[2024-07-03 06:29] LABS: Cholesterol 123 mg/dL (200); High Density Lipoprotein 41 mg/dL; Triglycerides 50 mg/dL; Very Low Density Lipoprotein 10 mg/dL (5-40)
[2024-07-03 08:23] VITALS: BMI 28.8
--- NOTE | 2024-07-03 08:34 | PCM.PN.HOSP ---
Reason for Visit Reason for Visit: Diagnoses Other cerebral infarction due to occlusion or stenosis of small artery (07/02/24) Subjective Subjective Still with expressive aphasia, but improving. Objective Data Objective Data Vital Signs: Vital Signs Temp Pulse Resp BP Pulse Ox O2 Del Method 36.1 C L 85 13 120/72 94 Room Air 07/03/24 05:53 07/03/24 05:53 07/03/24 05:53 07/03/24 05:53 07/03/24 05:53 07/03/24 05:53 Oxygen Delivery Method Room Air Weight: 67.1 kg Body Mass Index (BMI) 28.8 Lab / Micro Data 07/02/24 07:58 07/02/24 07:58 Labs: Laboratory Results - last 24 hr 07/03/24 05:36: Triglycerides 50, Cholesterol 123, LDL Cholesterol 72, VLDL Cholesterol 10, HDL Cholesterol 41 Radiography Diagnostic Testing: Radiology Impression Chest X-Ray 07/02/24 08:15 IMPRESSION: No acute cardiopulmonary abnormality. No interval change. Electronically Signed: Axel Bowman MD at 9:28 EST , Brain MRI 07/02/24 10:03 IMPRESSION: Focal areas of restricted diffusion seen within the left external capsule and within the left frontal lobe/prefrontal gyrus consistent with acute ischemic change. Electronically Signed: Axel Bowman MD at 15:55 EST Reading Location ID and State: [id number] / [place] Tel , Service support , ADDENDUM: 07/02/24 1613 IMPRESSION: Focal areas of restricted diffusion seen within the left external capsule and within the left frontal lobe/prefrontal gyrus consistent with acute ischemic change. N.B. : The above Results were Read Back by Axel Bowman MD to Marko Menchaca DO, and understanding confirmed on 07/02/2024 16:07:00 (ET). Electronically Signed: Axel Bowman MD at 15:55 EST Reading Location ID and State: [id number] / [place] Tel , Service support , Physical Exam Const alert and no apparent distress Neuro Neuro Narrative: Able to identify all the items on the NIH pitcher but had difficulty explaining the scene with the woman with the dishes and the children and the cookie jar. Was able to name dishes, cookie jar and chair tipping over but could not articulate water flowing over the sink and so forth. Still would have some issues regards to getting stuck on words that she would be able to find. Assessment & Plan Assessment/Plan (1) Acute lacunar stroke: PLAN: Onset was the . Patient did not present to the and was therefore not a candidate for TNK. Patient started on aspirin will continue daily. Increase atorvastatin from 20 to 40 mg daily. MRI of the brain acute CVA in the left external capsule and w/i the left frontal lobe/prefrontal gyrus. Echocardiogram shows an EF of 70%. Strength ortiz patient is doing well but we will have physical and Occupational Therapy see her as well as speech therapy. Seen by neurology recommending 30-day event monitor. PLAN: Plan Hypertension: Stable. Continue with amlodipine. Continue with losartan. Disposition:I think from a physical therapy standpoint she is going to do well but the question remains how her speech will come along.
[2024-07-03] MEDS: 0.9% Saline Lock 10 ML Syringe IV (08:48)
[2024-07-03 08:50] VITALS: BP 152/86; PULSE 80; RESP 18; TEMP 36.6; O2SAT 94
[2024-07-03] MEDS: Aspirin 81 MG TAB.CHEW PO (09:21)
[2024-07-03] MEDS: Losartan Potassium 100 MG Tablet PO (09:21)
[2024-07-03] MEDS: amLODIPine 2.5 MG Tablet PO (09:22)
[2024-07-03] MEDS: Tolterodine Tartrate 2 MG CAP.SA PO (09:22)
[2024-07-03] MEDS: Atorvastatin Calcium 40 MG Tablet PO (09:22)
--- NOTE | 2024-07-03 10:11 | NURSING ---
Patient's NIHSS not done on time due to patient getting ECHO. Will complete when ECHO is completed.
[2024-07-03 10:22] VITALS: BP 145/75; PULSE 89; RESP 17; TEMP 36.8; O2SAT 95
--- NOTE | 2024-07-03 11:08 | CON.PCM.NE_ITS ---
Assessment and Plan: Neuro Assessment/Plan MONICA VO is a 83 F with a past medical history of HTN, HLD, L occipital stroke being evaluated by Teleneurology for expressive aphasia Diagnosis: Acute L external capsule and L frontal/prefrontal gyrus ischemic stroke - Etiology cryptogenic, but need to rule out cardioembolic given the location with prior L occipital stroke on CTH Plan: Agree with ASA, statin for secondary stroke prevention. 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 HPI Consult Data Date of Consult: 07/03/24 HPI Narrative Reason for Consultation: Expressive aphasia HPI Narrative: MONICA VO, is a 83 F with a hx of HTN, HLD, stroke who is here for further evaluation of expressive aphasia (words finding difficulties). She was outside the window for lytics. CTH revealed ischemic changes in the L external capsule, old L occipital stroke. CTA with no LVO or significant arterial stenosis. Brain MRI revealed an acute stroke on the L external capsule and L frontal/prefrontal gyrus. [facility] Medical History Lumbar radiculopathy Lumbar strain Pre-diabetes Abnormal Pap smear of cervix Breast cancer Hyperlipidemia Hypertension Home Medications ?Medication ?Instructions ?Recorded ?Last Taken ?Type losartan 100 mg tablet 100 mg PO DAILY 10/18/17 Unknown History amlodipine 2.5 mg tablet 2.5 mg PO DAILY 04/28/22 Unknown History atorvastatin 20 mg tablet (Lipitor) 20 mg PO DAILY 04/28/22 Unknown History tolterodine 2 mg capsule,extended 2 mg PO Q24H #30 caps 06/01/24 Unknown Rx release 24 hr (Detrol LA) gabapentin 100 mg capsule 100 mg PO QHS 07/02/24 Unknown History Allergy/AdvReac Type Severity Reaction Status Date / Time metronidazole (From Flagyl) Allergy Mild hives Verified 07/02/24 07:50 Family History Father Heart disease Diabetes Surgical History H/O tubal ligation ovarian wedge resection S/P right mastectomy S/P cholecystectomy Social History Smoking Status: Never smoker alcohol intake: never substance use type: does not use caffeine: Yes what type of physical activity do you participate in: walking frequency: 3-4 times per week seatbelt use: always do you feel safe at home: Yes additional social history: -Pam 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 [employer] Vital Signs Vital Signs Vital Signs: 07/02/24 12:00 07/02/24 14:00 07/02/24 17:26 Temperature 97.8 F 98.0 F 97.4 F L Temperature Source Oral Oral Oral Pulse Rate 84 81 86 Pulse Strength Respiratory Rate 16 16 16 Respiratory Effort Respiratory Depth Respiratory Pattern Blood Pressure 138/76 H 129/75 H 138/71 H Blood Pressure Mean 96 93 93 Blood Pressure Source Monitor Monitor Monitor Blood Pressure Position Semi-Fowlers Semi-Fowlers Semi-Fowlers Blood Pressure Location Left Arm Left Arm Left Arm Pulse Ox 95 95 94 Oxygen Delivery Method Room Air Room Air Room Air 07/02/24 18:40 07/02/24 21:55 07/02/24 22:12 Temperature 97.5 F L Temperature Source Oral Pulse Rate 86 Pulse Strength Respiratory Rate 17 Respiratory Effort Normal Non-Labored Respiratory Depth Normal Respiratory Pattern Normal Blood Pressure 136/80 H Blood Pressure Mean 98 Blood Pressure Source Monitor Blood Pressure Position Semi-Fowlers Blood Pressure Location Left Arm Pulse Ox 94 96 Oxygen Delivery Method Room Air Room Air Room Air 07/03/24 02:00 07/03/24 02:21 07/03/24 05:53 Temperature 97.5 F L 96.9 F L Temperature Source Temporal Temporal Pulse Rate 81 85 Pulse Strength Respiratory Rate 17 13 Respiratory Effort Normal Non-Labored Respiratory Depth Normal Respiratory Pattern Normal Blood Pressure 126/79 H 120/72 Blood Pressure Mean 94 88 Blood Pressure Source Monitor Monitor Blood Pressure Position Semi-Fowlers Supine Blood Pressure Location Left Arm Left Arm Pulse Ox 96 94 Oxygen Delivery Method Room Air Room Air Room Air 07/03/24 08:50 07/03/24 09:29 07/03/24 10:00 Temperature 97.9 F Temperature Source Oral Pulse Rate 80 Pulse Strength Normal (2+) Respiratory Rate 18 Respiratory Effort Normal Respiratory Depth Normal Respiratory Pattern Normal Blood Pressure 152/86 H Blood Pressure Mean 108 Blood Pressure Source Monitor Blood Pressure Position Semi-Fowlers Blood Pressure Location Left Arm Pulse Ox 94 Oxygen Delivery Method Room Air Room Air 07/03/24 10:22 Temperature 98.3 F Temperature Source Oral Pulse Rate 89 Pulse Strength Respiratory Rate 17 Respiratory Effort Respiratory Depth Respiratory Pattern Blood Pressure 145/75 H Blood Pressure Mean 98 Blood Pressure Source Monitor Blood Pressure Position Semi-Fowlers Blood Pressure Location Left Arm Pulse Ox 95 Oxygen Delivery Method Room Air Weight Weight: 67.1 kg Body Mass Index (BMI) 28.8 NIHSS NIHSS Nursing Documentation NIHSS Nursing Documentation: NIHSS: Ischemic Stroke/TIA Start: 07/02/24 10:03 Text: For PCU Patients: NIH and Neuro Check every 4 Status: Active hours, PRN and with change in RN caregiver. Freq: [id number] Protocol: Activity Type Activity Date Activity User E-sign Co-sign Detail Recorded Client Recorded Date Recorded By Document 07/03/24 10:22 [id number] 07/03/24 10:30 07/03/24 10:22 NIH Stroke Scale [NIHSS] A score of 0 is normal or asymptomatic . Total possible score is 42. Inpatient: RN or Physician to activate a stroke alert for onset of new stroke symptoms or with NIHSS increase >/= 3 points. Following change in neurological status, NIHSS will be performed per physician order or more frequently PRN. -1a. Level of Consciousness Alert; keenly responsive -1b. LOC Questions Answers BOTH questions correctly. -1c. LOC Commands Performs both tasks correctly . -2. Best Gaze Normal -3. Visual No visual loss -4. Facial Palsy Normal symmetrical movements -5a. Left Arm No drift; arm holds 90 (or 45 ) degrees for full 10 seconds -5b. Right Arm No drift; arm holds 90 (or 45 ) degrees for full 10 seconds -6a. Left Leg No drift; leg holds 30-degree position for full 5 seconds -6b. Right Leg No drift; leg holds 30-degree position for full 5 seconds -7. Limb Ataxia Absent -8. Sensory Normal; no sensory loss -9. Best Language Severe aphasia; -10. Dysarthria Normal -11. Extinction and Inattention No abnormality -Total 2 Query Text:A score of 0 is normal or asymptomatic. Total possible score is 42 . ED: Notify Physician for NIHSS increase by > / = 3 points. Inpatient: RN or Physician to activate a stroke alert for NIHSS increase of > / = 3 points. NIHSS: Ischemic Stroke/TIA Start: 07/02/24 10:03 Text: For ICU Patients: NIH sroke scale at Status: Complete presentation and every 2 hours or with change in RN caregiver Freq: [id number] Protocol: Activity Type Activity Date Activity User E-sign Co-sign Detail Recorded Client Recorded Date Recorded By Document 07/02/24 19:41 [id number] 07/02/24 19:42 07/02/24 19:41 -1a. Level of Consciousness Alert; keenly responsive -1b. LOC Questions Answers neither question correctly. -1c. LOC Commands Performs both tasks correctly . -2. Best Gaze Normal -3. Visual No visual loss -4. Facial Palsy Normal symmetrical movements -5a. Left Arm No drift; arm holds 90 (or 45 ) degrees for full 10 seconds -5b. Right Arm No drift; arm holds 90 (or 45 ) degrees for full 10 seconds -6a. Left Leg No drift; leg holds 30-degree position for full 5 seconds -6b. Right Leg No drift; leg holds 30-degree position for full 5 seconds -7. Limb Ataxia Absent -8. Sensory Normal; no sensory loss -9. Best Language Severe aphasia; -10. Dysarthria Mild-to- moderate dysarthria; -11. Extinction and Inattention No abnormality -Total 5 Query Text:A score of 0 is normal or asymptomatic. Total possible score is 42 . ED: Notify Physician for NIHSS increase by > / = 3 points. Inpatient: RN or Physician to activate a stroke alert for NIHSS increase of > / = 3 points. NIHSS 1a. Level of Consciousness: Alert; keenly responsive 1b. LOC Questions: Answers BOTH questions correctly. 1c. LOC Commands: Performs both tasks correctly. 2. Best Gaze: Normal 3. Visual: No visual loss 4. Facial Palsy: Normal symmetrical movements 5a. Left Arm: No drift; arm holds 90 (or 45) degrees for full 10 seconds 5b. Right Arm: No drift; arm holds 90 (or 45) degrees for full 10 seconds 6a. Left Leg: No drift; leg holds 30-degree position for full 5 seconds 6b. Right Leg: No drift; leg holds 30-degree position for full 5 seconds 7. Limb Ataxia: Absent 8. Sensory: Normal; no sensory loss 9. Best Language: [id number] aphasia; 10. Dysarthria: Pzdd-[id number] dysarthria; 11. Extinction and Inattention: No abnormality Total: 2 Physical Exam Narrative Patient is awake and alert, follows commands, oriented to self, person, situation and place. Mild expressive aphasia with words-finding difficulties. No facial droop, mild dysarthria, no clear drifts in the UE/LE, no dysmetria, sensation intact to LT Lab / Micro Data 07/02/24 07:58 07/02/24 07:58 Labs: Laboratory Results - last 24 hr 07/03/24 05:36: Triglycerides 50, Cholesterol 123, LDL Cholesterol 72, VLDL Cholesterol 10, HDL Cholesterol 41 Imaging Radiology Impression Brain MRI 07/02/24 10:03 IMPRESSION: Focal areas of restricted diffusion seen within the left external capsule and within the left frontal lobe/prefrontal gyrus consistent with acute ischemic change. Electronically Signed: Axel Bowman MD at 15:55 EST , ADDENDUM: 07/02/24 1613 IMPRESSION: Focal areas of restricted diffusion seen within the left external capsule and within the left frontal lobe/prefrontal gyrus consistent with acute ischemic change. N.B. : The above Results were Read Back by Axel Bowman MD to Marko Menchaca DO, and understanding confirmed on 07/02/2024 16:07:00 (ET). Electronically Signed: Axel Bowman MD at 15:55 EST , Active Medications Active Medications Active Medications: Current Medications Generic Name Dose Route Start Last Admin Trade Name Freq PRN Reason Stop Dose Admin Acetaminophen 650 mg 07/02/24 10:03 Acetaminophen 325 Mg Tablet PO Q6H PRN PRN Pain 1-10 Or Fever>100.7 Amlodipine Besylate 2.5 mg 07/02/24 10:40 07/03/24 09:22 Amlodipine 2.5 Mg Tablet PO 2.5 mg DAILY GLENNA Administration Protocol Aspirin 81 mg 07/03/24 08:00 07/03/24 09:21 Aspirin 81 Mg Tab.Chew PO 81 mg BREAKFAST GLENNA Administration Atorvastatin Calcium 40 mg 07/02/24 10:40 07/03/24 09:22 Atorvastatin Calcium 40 Mg Tablet PO 40 mg DAILY GLENNA Administration Gabapentin 100 mg 07/02/24 22:00 07/02/24 22:10 Gabapentin 100 Mg Capsule PO 100 mg QHS GLENNA Administration Sodium Chloride 100 mls @ 15 mls/hr 07/02/24 10:18 IV .Q6H40M PRN Saline Flush Losartan Potassium 100 mg 07/02/24 10:40 07/03/24 09:21 Losartan Potassium 100 Mg Tablet PO 100 mg DAILY GLENNA Administration Protocol Ondansetron HCl 4 mg 07/02/24 10:03 Ondansetron 4 Mg/2 Ml Vial IV Q8H PRN PRN NAUSEA/VOMITING Sodium Chloride 10 - 40 ml 07/02/24 10:18 07/03/24 08:48 0.9% Saline Lock 10 Ml Syringe IV 10 ml UD PRN Administration SALINE FLUSH Tolterodine Tartrate 2 mg 07/02/24 10:40 07/03/24 09:22 Tolterodine Tartrate 2 Mg Cap.Sa PO 2 mg Q24 GLENNA Administration
[2024-07-03 14:20] VITALS: BP 139/76; PULSE 99; RESP 18; TEMP 36.8; O2SAT 97
--- NOTE | 2024-07-03 14:22 | CASEMGMT ---
SW completed a PHQ 9 with patient as she had a Stroke. Patient scored a 0 which indicates no depression. Nimo SANCHEZ
--- NOTE | 2024-07-03 14:33 | PCM.DC.SUM ---
Providers Date of Admission: 07/02/24 Primary Care Physician: Dr. Michelle Arango, Consultations 07/02/24 10:03 Consult: Tele-Neurology Routine Consulting Provider: [facility] Reason for Consult: Acute Ischemic Stroke/TIA EMERGENT Consult: No MD Notified: Yes Date Notified: 07/02/24 Time Notified: 10:15 Method of Notification: Answering Service Nursing Unit Staff Notify [facility] of Tele-Neurology Consult: Yes Reason For Visit: CVA Diagnosis Discharge Diagnosis (1) Acute lacunar stroke: Status: Acute Code(s): I63.81 - Other cerebral infarction due to occlusion or stenosis of small artery Plan: Onset was the . Patient did not present to the and was therefore not a candidate for TNK. Patient started on aspirin will continue daily. Increase atorvastatin from 20 to 40 mg daily. MRI of the brain acute CVA in the left external capsule and w/i the left frontal lobe/prefrontal gyrus. Echocardiogram shows an EF of 70%. Strength ortiz patient is doing well but we will have physical and Occupational Therapy see her as well as speech therapy. Seen by neurology recommending 30-day event monitor. Plan Hypertension: Stable. Continue with amlodipine. Continue with losartan. Disposition:I think from a physical therapy standpoint she is going to do well but the question remains how her speech will come along. Medications at Discharge Home Medications losartan 100 mg tablet 100 mg PO DAILY 10/18/17 amlodipine 2.5 mg tablet 2.5 mg PO DAILY 04/28/22 tolterodine 2 mg capsule,extended release 24 hr (Detrol LA) 2 mg PO Q24H #30 caps 06/01/24 gabapentin 100 mg capsule 100 mg PO QHS 07/02/24 aspirin 81 mg chewable tablet 81 mg PO BREAKFAST #0 tabs 07/03/24 atorvastatin 40 mg tablet 40 mg PO DAILY #30 tabs 07/03/24 Hospital Course Operations None Procedures 2-D Echocardiogram Summary of Care Provided Minutes Spent on Discharge: 35 Hospital Course: Patient presents to the hospital with 3-day history of expressive aphasia. Symptoms began on the and persisted over the weekend. Patient presented on the with expressive aphasia. Patient would follow commands appropriately but would have difficulty naming objects. CAT scan showed a lacunar infarct. MRI showed acute CVA in the left frontal lobe/prefrontal gyrus. Since she has been here her naming of objects has improved though she is not at her baseline yet. Patient continue with aspirin, statin and outpatient speech therapy. Patient will also have a 30-day event monitor to monitor for any arrhythmias. Patient also advised to follow-up with neurology in 4 to 6 weeks. Weight / BMI Weight Weight: 67.1 kg Body Mass Index (BMI) 28.8 ABG / Lab / Microbiology Data 07/02/24 07:58 07/02/24 07:58 Laboratory: Laboratory Results - last 24 hr 07/03/24 05:36: Triglycerides 50, Cholesterol 123, LDL Cholesterol 72, VLDL Cholesterol 10, HDL Cholesterol 41 Radiography Diagnostic Testing: Radiology Impression Brain MRI 07/02/24 10:03 IMPRESSION: Focal areas of restricted diffusion seen within the left external capsule and within the left frontal lobe/prefrontal gyrus consistent with acute ischemic change. Electronically Signed: Axel Bowman MD at 15:55 EST , ADDENDUM: 07/02/24 1613 IMPRESSION: Focal areas of restricted diffusion seen within the left external capsule and within the left frontal lobe/prefrontal gyrus consistent with acute ischemic change. N.B. : The above Results were Read Back by Axel Bowman MD to Marko Menchaca DO, and understanding confirmed on 07/02/2024 16:07:00 (ET). Electronically Signed: Axel Bowman MD at 15:55 EST , Echocardiogram 07/02/24 10:03 Interpretation Summary Normal LV size. The left ventricular ejection fraction is 70 %. Valsalva LV gradient 60 mmHg. The global longitudinal strain is normal. The global longitudinal strain = -17.7 % (normal). Ordering Physician: Marko Menchaca Referring Physician: Michelle Arango M.D. Performed By: Liliam Shepard RDCS D/C Instructions Discharge Diet: Low fat / Low cholesterol DC O2, CPAP, BIPAP Needs Home O2 Discharge instructions: No Meaningful Use Info Meaningful Use Meaningful Use Diagnoses (Choose all that apply): Ischemic CVA CVA Therapy Assessed for PT,OT and/or ST?: Yes Ischemic Stroke Antithrombotic order at d/c?: Yes Dx of Atrial fib/flutter?: No Anticoagulant at discharge?: No Reason anticoagulant not ordered: Treatment not Indicated Statin Dosing Therapy Reference: STATIN DOSE THERAPY REFERENCE: * Patients > 75 years receive moderate or high dose statin therapy. * Patients 75 years or YOUNGER should receive HIGH intensity statin dose unless contraindicated. You will be required to document reason for non-treatment if statin daily dose does not meet guidelines. HIGH DOSE STATIN THERAPY DAILY Atorvastatin > than or = to 40 mg Rosuvastatin > than or = to 20 mg Amlodipine + Atorvastatin > than or = to 2.5/40 mg Ezetimibe + Simvastatin 10/80 mg Simvastatin 80mg Statins at discharge?: Yes Primary Dx Acute Ischemic CVA?: Yes IV thrombolytic ordered during stay?: No Reason IV thrombolytic not ordered: Procedure not Indicated Discharge Plan Admission Admit Date/Time: 07/02/24 15:46 Primary Reason for Your Visit: Stroke Attending Provider: Marko Menchaca Primary Care Provider: Michelle Arango Consulting Providers: Nasir Stoner; Keyla Medellin; Lakeisha Broderick; Natasha Barrios; Kassy Dorsey; Alfredo Falk; Edna Arango; Vito Potts; Baldo Ly; Ezequiel More; Elyse Ferrera; Dale López; Omaira Gordillo; Stanley Park; Sonia Martin; Chris Ayon; Jeny Cherry; William Candelaria; Janee Hoskins; Luke,Yousef Instructions Additional Instructions / Restrictions: You had a stroke that is affected your speech. That should continue to improve over time. You will need to take aspirin and I have increased your Lipitor from 20 to 40 mg daily. You will be wearing an event monitor. This is to check to see if he have any heart rhythm issues that may be a risk factor for future strokes. You will need to follow-up with neurology as outpatient. [facility] [phone]. [facility] [phone]. [facility] [place] [phone]. [facility] [phone]. [facility] [phone] Discharge Orders/Prescriptions Prescriptions: New atorvastatin 40 mg Tablet 40 mg PO DAILY Qty: 30 0RF aspirin 81 mg Tablet,Chewable 81 mg PO BREAKFAST Qty: 0 0RF Continued losartan 100 mg tablet 100 mg PO DAILY amlodipine 2.5 mg tablet 2.5 mg PO DAILY tolterodine [Detrol LA] 2 mg capsule,extended release 24hr 2 mg PO Q24H Qty: 30 12RF gabapentin 100 mg capsule 100 mg PO QHS Discontinued atorvastatin [Lipitor] 20 mg tablet 20 mg PO DAILY Other Ambulatory Orders: Speech Therapy Evaluation (Routine) Location: None Selected Ordered By: Dr. Marko Menchaca 30 Day Event Recorder Preventi (Urgent) Timeframe: 1 Day Facility: [facility] [place] - Location: Cardiovascular Services Ordered By: Dr. Marko Menchaca Referrals / Follow Up: Michelle Arango DO [Primary Care Provider] - Disposition Disposition (needs filled in before D/C Order can be placed): Home, Self Care Charges/Coding Visit Charges Inpatient E&M: 87304 Disch Hosp >30min
--- NOTE | 2024-07-03 14:35 | CASEMGMT ---
ELTON PENDLETON Face to Face with patient for initial transition planning/care coordination assessment. ELTON PENDLETON introduced self and role at [facility]. Patient lying in bed, alert and oriented. Patient willing to participate in assessment and is able to answer all questions appropriately. Care providers, pharmacy, and demographics verified. Strata: 2 PCP: [facility] Specialists: DORETHA Flores Preferred Pharmacy: [facility] Insurance: [employer] [facility] Prescription Benefit: yes Living Will/HPOA: yes, ruthy Trevino LNOK: , daughter Living Arrangements: Patient lives with in a 2 story home with bed and bath available on first floor, 4 steps and railing to enter the home. Patient was independent at home. Transportation: self, DME/HHC: Patient has grab bars and walker at home. No previous HHC or SNF. Patient wishes to discharge home with outpatient ST at [facility]. Patient wishes for ELTON PENDLETON to fax referal to [facility] and have them call her to schedule appointment. Patient states she has no further needs or concerns at this time. RN HELDER faxed referral to [facility]. CM to follow for discharge planning needs that may arise. Disposition Plan: Patient to discharge home with outpatient ST, family support, and follow-up plans in place. Felisa MEDINA, RN, CM
--- NOTE | 2024-07-03 14:55 | PHA.DC_ITS ---
Pharmacy [facility] Pharm[facility] Service has performed discharge medication reconciliation and counseling for this patient. 1. ASPIRIN 81MG PO BREAKFAST 2. ATORVASTATIN INCREASED TO 40MG The patient's discharge medication list was reviewed for discrepancies and discrepancies were resolved. The patient was counseled on the following discharge medications and changes in medications for homegoing were reviewed. The Reason for Use, instructions for use, and potential side effects were reviewed for all new medications. The patient's questions regarding all of their medications were answered. The patient was able to verbally demonstrate an understanding of their discharge medications. Medications at Discharge Home Medications losartan 100 mg tablet 100 mg PO DAILY 10/18/17 amlodipine 2.5 mg tablet 2.5 mg PO DAILY 04/28/22 tolterodine 2 mg capsule,extended release 24 hr (Detrol LA) 2 mg PO Q24H #30 caps 06/01/24 gabapentin 100 mg capsule 100 mg PO QHS 07/02/24 aspirin 81 mg chewable tablet 81 mg PO BREAKFAST #0 tabs 07/03/24 atorvastatin 40 mg tablet 40 mg PO DAILY #30 tabs 07/03/24
[2024-07-03 15:30] VITALS: BMI 28.8
[2024-07-05 15:38] LABS: Bedside Glucose 127 mg/dL (74-106)
== END 2024-07-03 16:26 | disposition home or self-care (01) | DRG 66 ==
LOC: ED 09:05 → PCU 09:09
PROVIDERS: Emergency Provider Emergency Medicine; PCP Internal Medicine
DX: I63.81 Other cerebral infarction due to occlusion or stenosis of small artery (principal); R47.01 Aphasia; I10 Essential (primary) hypertension; E78.5 Hyperlipidemia, unspecified; M54.16 Radiculopathy, lumbar region; R47.1 Dysarthria and anarthria; R29.702 NIHSS score 2; Z85.3 Personal history of malignant neoplasm of breast; Z88.1 Allergy status to other antibiotic agents; Z90.49 Acquired absence of other specified parts of digestive tract; Z79.899 Other long term (current) drug therapy
CPT/HCPCS: 36415; 70450; 70496; 70498; 70551; 71045; 80048; 80061; 82962; 84484; 85025; 85610; 85730; 92507; 92523; 92610; 93005; 93306; 94762; 97162; 97802; 99284; Q9967; A4216

== ENCOUNTER 2024-08-29 17:34 | Emergency (ER) | payer MEDICARE, SELFPAY ==
[2024-08-29] VITALS (8 sets, daily range): BP systolic 121–147; BP diastolic 53–77; PULSE 55–82; RESP 14–19; TEMP 37.2; O2SAT 95–99; BMI 27.4
--- NOTE | 2024-08-29 17:58 | EKG12_ITS ---
Test Reason : DYSRHYTHMIA Blood Pressure : */* mmHG Vent. Rate : 57 BPM Atrial Rate : 57 BPM P-R Int : 170 ms QRS Dur : 76 ms QT Int : 440 ms P-R-T Axes : 28 46 48 degrees QTcB Int : 428 ms Sinus bradycardia with occasional Premature ventricular complexes Low voltage QRS Septal infarct , age undetermined Abnormal ECG Confirmed by VASQUEZ CHILDS, DRISS ([id number]), senior editor MEREDITH CAI ([id number]) on 08/30/2024 8:51:19 AM Referred By: Confirmed By: DRISS OVALLE MD
--- NOTE | 2024-08-29 17:58 | CT_ITS ---
PROCEDURE: CT images of the brain were acquired without intravenous contrast. Multiplanar reformats were acquired. COMPARISON: MRI brain 07/02/2019. FINDINGS: * ACUTE: No acute infarct or hemorrhage. No mass effect or herniation. Focus of hypoattenuation left centrum semiovale and dietz radiata, also noted on the MRI from 07/02/2024, secondary to prior infarct. * BRAIN PARENCHYMA: Parts supratentorial hypodensity, nonspecific, but likely secondary to chronic microvascular ischemia. Mild generalized volume loss with concordant ventriculomegaly. * VENTRICLES/EXTRA-AXIAL SPACES: No hydrocephalus or extra-axial fluid collections. * EXTRACRANIAL STRUCTURES: Visualized osseous structures are normal. Soft tissues are normal. Mild paranasal sinus mucosal thickening. Mastoid air cells are clear. Bilateral lens replacements. CT/STROKE Brain/Head without Cont IMPRESSION: No evidence of an acute intracranial abnormality; no acute infarct intracranial hemorrhage or extra-axial collection. Sequela of prior left coronal radiata and centrum semiovale infarct. Chronic microvascular ischemia and involutional changes. REASON FOR EXAM: NEURO DEFICIT, ACUTE, STROKE SUSPECTED Reading Location: [facility]
--- NOTE | 2024-08-29 18:10 | CT_ITS ---
PROCEDURE: STROKE CTA HEAD AND NECK W/CON REASON FOR EXAM: ACUTE DIPLOPIA TECHNIQUE: CTA HEAD AND NECK WITH IV CONTRAST AND 3-D CONTRAST: COMPARISON: None. FINDINGS: AORTIC ARCH The aortic arch is normal. There is a common trunk of the innominate and left common carotid arteries. The origins of the arch branch vessels are patent. EXTRACRANIAL CAROTIDS The common carotid, internal carotid and external carotid segments are widely patent throughout the neck. RIGHT ICA Maximum stenosis (NASCET): 0 % LEFT ICA Maximum stenosis (NASCET): <10 % SKULL BASE The petrous, cavernous and supraclinoid segments of the distal internal carotid arteries are patent with normal configuration. The ophthalmic arteries, posterior communicating artery and anterior choroidal artery origins are normal. INTRACRANIAL VASCULATURE Cerebral Arteries: Mild atherosclerotic calcification of the carotid siphons, without hemodynamically significant stenosis. Otherwise, the anterior, middle and posterior cerebral artery distributions are within normal limits. [place] of [place]: The A1 and P1 segments are patent. There is a patent anterior communicating artery with normal configuration. There are small patent posterior communicating arteries with normal configuration. Venous Drainage: Unremarkable. VERTEBROBASILAR SYSTEM The proximal subclavian arteries, both vertebral arteries and basilar artery are widely patent. The cerebellar arteries are within normal limits. NONVASCULAR There is no abnormal intracranial enhancement. The ventricles, cisterns, sulci and parenchymal attenuation are normal. Bone windows are unremarkable. CT/STROKE CTA Head AND Neck W/Con IMPRESSION: Scattered atherosclerotic calcification without hemodynamically significant pawel nosis. One or more dose reduction techniques were used (e.g., Automated exposure contr ol, adjustment of the mA and/or kV according to patient size, use of iterative reconstruction technique). [facility]
--- NOTE | 2024-08-29 18:16 | RAD_ITS ---
PROCEDURE: CHEST 1 VIEW 08/29/2024 REASON FOR EXAM: ACUTE DIPLOPIA TECHNIQUE: Frontal view of the chest. COMPARISON: 07/02/2024 FINDINGS: The lungs are clear. The cardiac and mediastinal contours appear within limits. The visualized osseous structures appear within limits. RAD/Chest 1 View IMPRESSION: No evidence of acute disease. Reading Location: [id number]
--- NOTE | 2024-08-29 18:22 | ED.VIS.STROK ---
HPI History of Present Illness Chief Complaint: Neuro S/Sx Informant: patient and family (x2) Narrative Narrative: 83-year-old female states she was getting out of a car with some family today about an hour prior to evaluation/arrival and she noticed suddenly that she had double vision. She had no eye pain, headache, dizziness, off balance with walking, or visual field cut. She states she was checking her glasses before she told her family making sure that it was something that was persistent, and she estimates that it lasted a minute or 2 before it resolved. They were already on their way to the hospital at that point. She states her symptoms are resolved right now. They are concerned because she had a stroke in June and was admitted here, her symptoms were mostly word searching and language/speech related, and all of that has resolved now. She has not yet had her neuro follow-up appointment which is scheduled for later this month. She subsequently had influenza after that admission and then she had COVID, and she has been recovering for the last 2 or 3 weeks from the latter, still has a little bit of hoarseness but no other symptoms of illness. She has no new speech symptoms now. [facility] Medical History Lumbar radiculopathy Lumbar strain Pre-diabetes Abnormal Pap smear of cervix Breast cancer Hyperlipidemia Hypertension Home Medications ?Medication ?Instructions ?Recorded ?Last Taken ?Type losartan 100 mg tablet 100 mg PO DAILY 10/18/17 Unknown History amlodipine 2.5 mg tablet 2.5 mg PO DAILY 04/28/22 Unknown History tolterodine 2 mg capsule,extended 2 mg PO Q24H #30 caps 06/01/24 Unknown Rx release 24 hr (Detrol LA) gabapentin 100 mg capsule 100 mg PO QHS 07/02/24 Unknown History aspirin 81 mg chewable tablet 81 mg PO BREAKFAST #0 tabs 07/03/24 Unknown Rx atorvastatin 40 mg tablet 40 mg PO DAILY #30 tabs 07/03/24 Unknown Rx Allergy/AdvReac Type Severity Reaction Status Date / Time metronidazole (From Flagyl) Allergy Mild hives Verified 07/02/24 07:50 Family History Father Heart disease Diabetes Surgical History H/O tubal ligation ovarian wedge resection S/P right mastectomy S/P cholecystectomy Social History Smoking Status: Never smoker alcohol intake: never substance use type: does not use caffeine: Yes what type of physical activity do you participate in: walking frequency: 3-4 times per week seatbelt use: always do you feel safe at home: Yes additional social history: -Pam 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 ROS ROS ED Constitutional Constitutional ED: Denies chills or fever(s) Eyes Eyes: Reports change in vision and diplopia ENT ENT ED: Denies rhinorrhea or sore throat Cardiovascular Cardiovascular: Denies chest pain or palpitations Respiratory/Chest Respiratory/Chest: Denies cough or dyspnea Gastrointestinal Gastrointestinal: Denies abdominal pain, diarrhea, nausea or vomiting Genitourinary Genitourinary ED: Denies dysuria or hematuria Musculoskeletal Musculoskeletal: Denies back pain or neck pain Integumentary Denies abscess or rash Neurologic Neurologic: Denies headache(s), paresthesias or weakness Psychiatric Psychiatric: Denies anxiety or suicidal thoughts EXAM Physical Exam Const Vital Signs: 08/29/24 17:36 08/29/24 18:01 08/29/24 18:01 Temperature 98.9 F Temperature Source Oral Pulse Rate 75 62 Respiratory Rate 18 16 Blood Pressure 138/77 H 129/71 H Blood Pressure Mean 97 90 Pulse Ox 99 98 Oxygen Delivery Method Room Air Room Air Room Air 08/29/24 18:30 08/29/24 19:28 08/29/24 20:00 Temperature Temperature Source Pulse Rate 55 L 61 Respiratory Rate 19 H 14 Blood Pressure 121/53 H 140/69 H 147/72 H Blood Pressure Mean 75 92 97 Pulse Ox 95 97 Oxygen Delivery Method Room Air Room Air Positive well nourished and well developed General Appearance ED: well developed and NAD HEENT Reports moist mucous membranes normocephalic and atraumatic Eyes PERRL and EOMs intact bilaterally Neck full ROM and supple Resp normal respiratory effort and clear to auscultation bilaterally Cardio regular rate, regular rhythm and no murmurs GI non-tender and non-distended Auscultation: normoactive bowel sounds Palpation: soft Back/Spine no CVA tenderness General Back: other FROM Extremity normal to inspection General Extremety ED: Negative for edema, pulses abnormal or tenderness General Extremity: Negative for edema or pulses abnormal Neuro oriented x3, CN's II-XII intact bilaterally and no sensory deficits noted Neuro Narrative: Normal speech no aphasia no dysarthria. NIHSS 0 see attached. Sensorium / Orientation: awake and alert Motor Exam: strength 5/5 throughout Skin no rashes or lesions noted and no wounds NIHSS NIHSS Initial: 1a Level of Consciousness: 0 1b LOC Questions (Score 2 if aphasic/stupor): 0 1c LOC Commands (Only score 1st attempt): 0 2 Best Gaze (If aphasic, use reflexive mvmts.): 0 3 Visual: 0 4 Facial Palsy: 0 5 Motor Arm Right (UN = amputation/fusion): 0 5 Motor Arm Left: 0 6 Motor Leg Right: 0 6 Motor Leg Left: 0 7 Limb ataxia (Only + if out of proportion): 0 8 Sensory (Aphasia/stupor=0 or 1, coma=2): 0 9 Best Language: 0 10 Dysarthria (mute, coma=2, intubated=UN): 0 11 Extinction and Inattention (only scored if +): 0 Total Score: 0 MDM MDM MDM Narrative Medical decision making narrative: Emergent stroke workup obtained although we did not cause alert because the patient symptoms are currently resolved and did not recur throughout her ED stay. CT and CTA images were reviewed by myself, and I agree with the radiology interpretation. No bleed, sequela of prior infarcts noted on the left side, and no LVO. I discussed with Dr. Dorsey, on for stroke neurology at [facility], she states given the symptoms and blood pressure and history, she doubts that this was a TIA or stroke, which I agree with, she states she recommends checking a UA and making sure she does not have a urinary infection that could cause these symptoms possibly as an initial symptom of generalized weakness, and states that she does not necessarily need to be admitted and monitored on the inpatient side for a TIA workup, while recommending for any recurrent potentially neurologic symptoms to then return and admit her. She was able to urinate and it is normal. Discussed with patient and family, they are comfortable with this plan we discussed reasons to return. 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 Lab Data Attestation: I reviewed the patient's lab results. Labs: Laboratory Results - last 24 hr 08/29/24 08/29/24 17:50 20:15 WBC 7.1 RBC 4.51 Hgb 12.5 Hct 37.4 MCV 82.9 MCH 27.7 MCHC 33.4 RDW Std Deviation 41.2 RDW Coeff of Pao 13.5 Plt Count 209 MPV 11.2 Immature Gran % (Auto) 0.100 Neut % (Auto) 30.6 L Lymph % (Auto) 48.8 H [place] % (Auto) 20.3 H Eos % (Auto) 0.1 Baso % (Auto) 0.1 Absolute Neuts (auto) 2.2 Absolute Lymphs (auto) 3.46 Nucleated RBC % 0 PT 12.6 INR 0.9 APTT 26.0 Sodium 138 Potassium 3.7 Chloride 104 Carbon Dioxide 22.9 Anion Gap 11 BUN 17 Creatinine 1.08 Estim Creat Clear Calc 39.22 L Est GFR (MDRD) Non-Af 51 L BUN/Creatinine Ratio 16.1 Glucose 106 H Calcium 9.8 Troponin T High Sens 15 H Troponin T Hi Sens 2 Hr 8 Urine Color Yellow Urine Clarity Clear Urine pH 6.5 Ur Specific [place] 1.005 Urine Protein 15 H Urine Glucose (UA) Normal Urine Ketones Negative Urine Occult Blood Negative Urine Nitrite Negative Urine Bilirubin Negative Urine Urobilinogen Normal Ur Leukocyte Esterase 25 H Urine RBC 0 SEEN Urine WBC 0-5 SEEN Ur Squamous Epith Cells 0-5 SEEN Urine Bacteria 0 SEEN Urine Mucus 0 SEEN Radiography Diagnostic Testing: Clinical Impression(s) from Imaging Studies Brain CT 08/29/24 17:58 IMPRESSION: No evidence of an acute intracranial abnormality; no acute infarct intracranial hemorrhage or extra-axial collection. Sequela of prior left coronal radiata and centrum semiovale infarct. Chronic microvascular ischemia and involutional changes. REASON FOR EXAM: NEURO DEFICIT, ACUTE, STROKE SUSPECTED [facility] Head/Neck CTA 08/29/24 18:10 IMPRESSION: Scattered atherosclerotic calcification without hemodynamically significant stenosis. One or more dose reduction techniques were used (e.g., Automated exposure control, adjustment of the mA and/or kV according to patient size, use of iterative reconstruction technique). Reading [facility] Chest X-Ray 08/29/24 18:16 IMPRESSION: No evidence of acute disease. Reading Location: [id number] Rhythm Strip Rhythm Strip: Sinus Rhythm Rate: 60 Ectopy: PVC(s) EKG Initial EKG: Attestation: I personally reviewed and interpreted this EKG as follows: Interpretation: Sinus Rhythm and No Acute Injury Pattern Comments: Nml axis & intervals; PVC otherwise nml EKG Management Discussion w/another healthcare provider: Guest Request Runner (stroke neuro Zha) Stroke Documentation Questions Stroke Team Activated: No (sx resolved, but CT/CTA obtained STAT) Was Patient considered for Endovascular Intervention?: No-CTA negative, determined not to be an endovascular candidate IV Thrombolytic Administered: No (sx resolved, nihss 0) Discharge Plan Triage Chief Complaint: Neuro S/Sx ED Provider: Floyd Estrada Dx/Rx/DC Orders Clinical Impression: Transient diplopia Instructions: ED Double Vision (Diplopia) Prescriptions: No Action losartan 100 mg tablet 100 mg PO DAILY amlodipine 2.5 mg tablet 2.5 mg PO DAILY tolterodine [Detrol LA] 2 mg capsule,extended release 24hr 2 mg PO Q24H Qty: 30 12RF gabapentin 100 mg capsule 100 mg PO QHS atorvastatin 40 mg Tablet 40 mg PO DAILY Qty: 30 0RF aspirin 81 mg Tablet,Chewable 81 mg PO BREAKFAST Qty: 0 0RF Primary Care Provider: Michelle Arango Referrals: Michelle Arango DO [Primary Care Provider] - Bryce Lisa MD [Non-Staff -Ordering Privileges] - Keep Lakeisha appointment Activity Restrictions/Additional Instructions: Reasonable to follow-up with your home restoration service supervisor or delivery associate as soon as possible as well to check your eyes. Return to the ER for recurrent neurologic symptoms or trouble speaking. Print Language: Syriac Disposition Disposition: Home, Self Care
[2024-08-29 18:27] LABS: Absolute Lymphocyte Count 3.46 X10^3/uL (0.83-4.51); Absolute Neutrophil Count 2.2 X10^3/uL (2.0-7.7); Basophil# 0.01 X10^3/uL; Basophil% 0.1 % (0-1); Eosinophil# 0.01 X10^3/uL; Eosinophils% 0.1 % (0-5); Hematocrit 37.4 % (37-47); Hemoglobin 12.5 g/dL (12.0-15.0); Lymphocyte # 3.46 X10^3/ul (0.83-4.51); Lymphocyte % 48.8 % (19-41); Mean Corp Hgb Conc 33.4 g/dL (32-36); Mean Corpuscular Hgb 27.7 pg (27.0-32.0); Mean Corpuscular Volume 82.9 fL (81-99); Mean Platelet Vol. 11.2 fl (6.2-12.0); Monocyte# 1.44 X10^3/uL; Monocyte% 20.3 % (0-10); NRBC Flagged by Analyzer 0 % (0-5); Neutrophil # 2.16 X10^3/uL (2.7-7.7); Neutrophil % 30.6 % (47-70); Platelet Count 209 K/mm3 (150-450); RBC Distribution Width CV 13.5 % (11.6-14.6); RBC Distribution Width SD 41.2 fl (35.1-43.9); Red Blood Count 4.51 M/mm3 (4.2-5.4); White Blood Count 7.1 K/mm3 (4.4-11.0)
[2024-08-29 18:31] LABS: International Normalized Ratio 0.9; Prothrombin Time (Protime)PT. 12.6 SECONDS (11.7-14.9)
[2024-08-29 18:51] LABS: Anion Gap 11 (5-15); BUN 17 mg/dL (4-19); BUN/Creat Ratio 16.1 RATIO (10-20); Calcium,Total 9.8 mg/dL (7.6-11.0); Carbon Dioxide 22.9 mmol/L (21.0-32.0); Chloride 104 mmol/L (98-108); Creatinine, Serum 1.08 mg/dL (0.70-1.20); EST Glomerular Filtration Rate 51 (>60); Estimated Creatinine Clearance 39.22 ml/min (50-250); Glucose 106 mg/dL (70-99); Potassium 3.7 mmol/L (3.3-5.1); Sodium Level 138 mmol/L (133-145); Troponin T High Sensitivity 15 ng/L (<=14)
[2024-08-29 20:30] LABS: Bacteria 0 SEEN /hpf (None Seen); Mucous, Urine 0 SEEN /hpf (<or=2+)
[2024-08-29 20:38] LABS: Color, Urine Yellow (Yellow); Glucose, Dipstick Normal (Normal); Ketone-Dipstick Negative (Negative); Leukocyte Esterase-Dipstick 25 /ul (Negative); Nitrite-Dipstick Negative (Negative); Occult Blood-Urine Negative /ul (Negative); Protein-Dipstick 15 mg/dl (Negative); Specific Gravity, Urine 1.005 (1.002-1.030); Urine Bilirubin Dipstick Negative (Negative); Urine Clarity Clear (Clear); Urine Urobilinogen Normal (Normal); Urine pH 6.5 (5.0 - 8.0)
[2024-08-29 20:50] LABS: Troponin T High Sens 2 HR 8 ng/L (<=14)
[2024-08-29 20:54] LABS: White Blood Cells 0-5 SEEN /hpf (0-5)
[2024-08-29 20:55] LABS: Red Blood Cells-Urine 0 SEEN /hpf (0-5); Squamous Epithelial Cells - UA 0-5 SEEN /hpf (5-10)
== END 2024-08-29 22:41 | disposition home or self-care (01) ==
PROVIDERS: Emergency Provider Emergency Medicine; PCP Internal Medicine; Visit Provider Emergency Medicine
DX: H53.2 Diplopia (principal); R53.1 Weakness; I10 Essential (primary) hypertension; I49.3 Ventricular premature depolarization; E78.5 Hyperlipidemia, unspecified; M54.16 Radiculopathy, lumbar region; Z85.3 Personal history of malignant neoplasm of breast; Z90.11 Acquired absence of right breast and nipple; Z86.73 Personal history of transient ischemic attack (TIA), and cerebral infarction without residual deficits; Z79.82 Long term (current) use of aspirin; Z79.899 Other long term (current) drug therapy
CPT/HCPCS: 70450; 70496; 70498; 71045; 80048; 81001; 84484; 85025; 85610; 85730; 93005; 99284; Q9967; A4216

== ENCOUNTER 2024-09-13 13:30 | Outpatient (RCR) | payer MEDICARE, SELFPAY ==
--- NOTE | 2024-07-07 15:52 | HP.SP.EV_ITS ---
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 The CLQT is to assess strength and weaknesses in five cognitive domains. Severity ratings are within normal limits, mild, moderate, severe deficits. The subtests are as follows: Date: 07/07/24 Attention Attention: Mild Memory Memory: Mild Executive Functions Executive Functions: WNL Language Language: Moderate Visuospatial Skills Visuospatial Skills: WNL Composite Severity Rating Composite Severity Rating: Mild Clock Drawing Severity Rating Clock Drawing Severity Rating: WNL CLQT Comments Scores: -: - Attention: 145 (mild) - Memory: 136 (mild) - Executive Functions: 20 (WNL) - Language: 23 (Moderate) - Visuospatial Skills: 76 (WNL) Reference: Neuro-QoL instrument Radiation Oncology Patient Plan Plan Plan: It is recommended that pt receive skilled speech therapy services to target the areas of attention, memory, and language, as evaluation determined mild-moderate deficits in these areas. Recommendations Treatment Warranted: Yes Treatment Warranted: Receptive/ Expressive Language Comment: Memory, attention, language Progress Prognosis: Good Frequency Frequency: 1x/Week Duration: Indefinite Patient/Family Goal Patient/Family Goal: Pt stated that her goal is to be able to pull out the words she wants. Pt's stated that he would like to see improvement with word finding and memory, specifically recall. Goals that are Established Determination:: Goals will be added/modified as deemed necessary and appropriate. Therapy will be discontinued when results of re-evaluation indicate therapy is no longer needed or lack of progress has been documented. Goal #1-5 Goal #1: Pt will complete mild to moderately complex sustained, alternating, divided attention tasks with 80% accuracy independently across 3 measured opportunities. Goal #2: Pt will demonstrate the use of word finding strategies to complete convergent and divergent naming tasks with 80% accuracy independently across 3 measured opportunities to improve word retrieval. Goal #3: Pt will complete mild to moderately complex immediate, short-term, and working memory tasks with 80% accuracy independently across 3 measured opportunities. Education Patient has Indicated that the Following Identified Educational Needs: None The Patient has indicated that they have no educational or learning abilities that may effect their care.: Yes Patient Instruction Patient Education: Treatment Plan and Goals Person Taught: Patient and Significant Other Teaching Method: Discussion Response to teaching: Verbalize Understanding
--- NOTE | 2024-09-13 14:28 | HP.SP.DC ---
ST Discharge Summary Discharged: Discharge: Patient participated in skilled speech services s/p CVA addressing cognitive linguistic deficits in executive functioning, memory, and verbal expression. Patient has achieved all goals, and feels she is at baseline. No further ST indicated at this time. Discharge ST this date with goals met. Discharge to care of self and physicians. Patient instructed to continue use of compensatory strategies for memory PRN and follow-up with physicians as scheduled.
== END 2024-09-13 19:00 | disposition home or self-care (01) ==
LOC: SP 13:30
PROVIDERS: PCP Internal Medicine
DX: R47.01 Aphasia (principal); I63.81 Other cerebral infarction due to occlusion or stenosis of small artery
CPT/HCPCS: 92507; 92523

== ENCOUNTER → 2025-01-05 | Outpatient (CLI) | payer MEDICARE, SELFPAY ==
--- NOTE | 2025-01-05 15:26 | BI_ITS ---
EXAM: SCREEN MAMM (CAD) W/JEANIE UNI L DATE: 01/05/2025 CLINICAL HISTORY: F, Age 84 y/o , SCREENING TECHNIQUE: SCREEN MAMM (CAD) W/JEANIE UNI L COMPARISON: Prior exam(s) dated 01/03/2024, 12/24/2022, 12/22/2021. FINDINGS: TISSUE DENSITY: There are scattered areas of fibroglandular density. Unilateral Left Breast Mammographic Findings: No significant masses, calcifications or other abnormalities are identified. BI/SCREEN MAMM (CAD) W/JEANIE UNI L IMPRESSION: There is no mammographic evidence of malignancy. OVERALL FINAL ASSESSMENT BI-RADS 1: NEGATIVE. RECOMMENDATION: Routine annual follow-up in 1 Year A letter with findings and recommendations will be mailed to the patient. Reading Location: [id number]
== END | disposition home or self-care (01) ==
LOC: OPBI 15:25
PROVIDERS: PCP Internal Medicine; Referring Provider Internal Medicine; Visit Provider Internal Medicine
DX: Z12.31 Encounter for screening mammogram for malignant neoplasm of breast (principal)
CPT/HCPCS: 77063; 77067

== ENCOUNTER → 2025-05-22 | Outpatient (CLI) | payer MEDICARE, SELFPAY ==
[2025-05-22 12:36] LABS: Hematocrit 41.6 % (37-47); Hemoglobin 13.2 g/dL (12.0-15.0); Immature Granulocytes Count 0.040 X10^3/uL (0.0-0.0); Mean Corp Hgb Conc 31.7 g/dL (32-36); Mean Corpuscular Volume 86.3 fL (81-99); Mean Platelet Vol. 11.6 fl (6.2-12.0); NRBC Flagged by Analyzer 0 % (0-5); Platelet Count 230 K/mm3 (150-450); RBC Distribution Width CV 13.8 % (11.6-14.6); RBC Distribution Width SD 43.3 fl (35.1-43.9); Red Blood Count 4.82 M/mm3 (4.2-5.4); White Blood Count 6.5 K/mm3 (4.4-11.0)
[2025-05-22 13:07] LABS: Creatinine, Urine (random) 158.00 mg/dL (28.00-217.00); Microalbumin,Random Urine 15.0 mg/L (<20 mg/L)
[2025-05-22 13:19] LABS: AST(SGOT) 21 U/L (<=31); Alanine Aminotransfer ALT/SGPT 24 U/L (<=34); Albumin, Serum 4.7 g/dL (3.4-4.8); Alkaline Phosphatase 82 U/L (35-104); Anion Gap 11 (5-15); BUN 16 mg/dL (4-19); BUN/Creat Ratio 20.0 RATIO (10-20); Calcium,Total 10.2 mg/dL (7.6-11.0); Carbon Dioxide 25.4 mmol/L (21.0-32.0); Chloride 102 mmol/L (98-108); Cholesterol 142 mg/dL (<=200); Globulin 2.8 g/dL (2.2-4.2); Glucose 114 mg/dL (70-99); Low Density Lipoprotein Calc. 84 mg/dL; Potassium 4.5 mmol/L (3.3-5.1); Triglycerides 92 mg/dL; Very Low Density Lipoprotein 18 mg/dL (5-40); Vitamin D,25 Hydroxy 47.9 ng/mL (30-100); cholesterol:hdl ratio screen 3.52
[2025-05-22 16:04] LABS: Mucous, Urine 0 SEEN /hpf (<or=2+); Red Blood Cells-Urine 0 SEEN /hpf (0-5)
[2025-05-22 23:24] LABS: Color, Urine Yellow (Yellow); Glucose, Dipstick Normal (Normal); Ketone-Dipstick Negative (Negative); Leukocyte Esterase-Dipstick Negative /ul (Negative); Nitrite-Dipstick Negative (Negative); Occult Blood-Urine Negative /ul (Negative); Protein-Dipstick 15 mg/dl (Negative); Specific Gravity, Urine 1.015 (1.002-1.030); Urine Bilirubin Dipstick Negative (Negative)
[2025-05-22 23:42] LABS: Squamous Epithelial Cells - UA 0-5 SEEN /hpf (5-10)
== END | disposition home or self-care (01) ==
LOC: CIMLAB 09:32
PROVIDERS: PCP Internal Medicine; Referring Provider Internal Medicine; Visit Provider Internal Medicine
DX: E78.00 Pure hypercholesterolemia, unspecified (principal); E11.9 Type 2 diabetes mellitus without complications; E55.9 Vitamin D deficiency, unspecified
CPT/HCPCS: 36415; 80053; 80061; 81001; 82043; 82306; 82570; 84443; 85025